=== PATIENT | male | born 1960 | race Caucasian/White ===

== ENCOUNTER 2018-12-07 07:19 | Inpatient (IN) ==
[2018-12-07] MEDS ORDERED: *HR* Propofol 200 MG/20 ML VIAL IVP ONE (07:36)
[2018-12-07] MEDS ORDERED: Dexamethasone 4 MG/ML VIAL ONE (07:37)
[2018-12-07] MEDS ORDERED: *HR* Rocuronium Bromide 50 MG/5 ML VIAL ONE ×2 (07:37→09:17)
[2018-12-07] MEDS ORDERED: *HR* Midazolam HCl 2 MG/2 ML VIAL ONE (07:37)
[2018-12-07] MEDS ORDERED: *HR* FentaNYL (PF) 100 MCG/2 ML VIAL ONE (07:37)
[2018-12-07] MEDS ORDERED: Lidocaine -MPF 2% 2 ML VIAL ONE (07:37)
[2018-12-07] MEDS ORDERED: Ondansetron 4 MG/2 ML VIAL ONE (07:37)
[2018-12-07] MEDS ORDERED: *HR* Succinylcholine 200 MG/10 ML VIAL IVP ONE (07:38)
[2018-12-07] MEDS ORDERED: Lidocaine HCL 4 ML Topical Solution (Laryng-O-Jet Kit Sterile Pak) TP ONE (07:38)
[2018-12-07] MEDS ORDERED: *HR* Remifentanil 2 MG VIAL IVP ONE (07:46)
--- NOTE | 2018-12-07 08:06 | Anesthesia Evaluation PreOp ---
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 (has had frontal lobe CVA, states he's weak on R side.) Other Medical History: Diabetes Type II (poorly cont), GERD Anesthesia History: No Prior Anesthetic Complications, Past Anesthesia Alcohol Use: none Drug use: none Medications and Allergies Allergy/AdvReac Type Severity Reaction Status Date / Time No Known Allergies Allergy Verified 12/07/18 08:10 - Meds/Allergy Pre-op Review Medications Reviewed: Yes Allergies Reviewed: Yes Beta Blockers on Current Med List: No Anesthesia Results - Imaging EKG: report reviewed (sinus rhythm) Anesthesia Exam Weight: 103 kg BMI 32 NPO (# of Hours): over 8 hours - HEENT Pupil (Motor): Pupils equal Mallampati: II Teeth: Missing (upper plate) - Cardiac Rhythm: Regular Murmur: None - Pulmonary Breath Sounds: bilateral Rales (Mild diffuse wheezing, good air exchange. ), bilateral Rhonchi Respiratory Effort: Symmetrical Anesthesia Assess/Plan ASA Score: 3 Level of consciousness: Cooperative Anesthetic Plan: General Monitoring Plan: Standard Monitors Recovery Plan: PACU (Discussed GA, risks. Agreed to proceed.)
--- NOTE | 2018-12-07 08:10 | History & Physical Report ---
Date of Encounter: 12/07/18 Time of Encounter: 08:09 24 Hour HP Update - Instructions Instructions: If the History and Physical is less than 30 days old and was completed prior to A.M. admission and or procedure and has NOT been updated on calendar day of procedure please complete this update prior to performing procedure. - Update Patient reports changes in Medical Condition: No Changes in examination, assessment, or condition: No Changes in Medication: No Preop tests/diagnostics Reviewed: Yes Pre-Op MRSA Screen: Negative Surgery Remains Indicated: Yes Consent for Planned Operative Procedure(s) Verified: Yes - Pre-Operative Checklist Preoperative Checklist Indicated: Yes Prophylactic Antibiotic Ordered: Yes Home Medications Include Beta Jarrod: No Beta Jarrod Taken Today (Day of Surgery): No Beta Jarrod Taken Yesterday (Day Prior to Surgery): No Is VTE Prophylaxis Indicated?: Yes
[2018-12-07] MEDS ORDERED: Albuterol 2.5 MG/3 ML NEBULIZER IH ONE (08:11)
[2018-12-07] MEDS ORDERED: CeFAZolin Syr 2,000MG/20 ML 2,000 MG/20 ML SYRINGE IVPB ONE (08:11)
[2018-12-07] MEDS ORDERED: Acetaminophen IV 1,000 MG/100 ML INFUS..BTL IVPB ONE (08:13)
[2018-12-07] MEDS ORDERED: Ringers Solution, Lactated 1,000 ML IVC SCH (08:15)
[2018-12-07] MEDS ORDERED: EPHEDrine 50 MG/ML VIAL ONE (08:57)
[2018-12-07] MEDS ORDERED: *HR* PHENYLEPHRINE 1,000 MCG/10 ML SYRINGE IVP ONE (09:00)
[2018-12-07] MEDS ORDERED: Ondansetron 4 MG/2 ML VIAL IVP ONE (09:17)
[2018-12-07] MEDS ORDERED: *HR* Midazolam HCl 2 MG/2 ML VIAL IVP PRN (09:17)
[2018-12-07] MEDS ORDERED: *HR* HYDROMORPHONE 2 MG/ML VIAL ONE (10:22)
--- NOTE | 2018-12-07 10:53 | Operative Note ---
Date of procedure: 12/07/18 Pre-op diagnosis: multiple pulm nodules Post-op diagnosis: other (granulomas) Procedure: bronchoscopy with aspiration, robotic left wedge resection x 2 lymph node dissection Anesthesia: GETA Local Anesthetics: 0.5% Sensorcaine HCL SubQ (cc) Surgeon: Harshal Flood Was there an assistant farm operations manager present: No Estimated blood loss (cc): 10 Specimen: wedge resection x 2, nodes 8.9 Condition: stable Disposition: PACU Procedure in Detail: Patient had multiple pulmonary nodules seen on CT scan of the chest. Despite PET scan demonstrating minimal activity, patient wanted mass was diagnosed given his history of tobacco use. Patient was brought to the operating room and placed on the operating table in the supine position. After undergoing general anesthesia with sequential compressive devices on bilateral lower extremities and perioperative antibiotics on board bronchoscopy was performed and thick copious secretions aspirated from the tracheobronchial tree until clear. Patient was placed on the operating room table in the right lateral decubitus position with care to pad all pressure points prepped and draped in the usual sterile fashion. Thoracoscopy ports were placed in the da Damon robot was docked. Wedge resection of the left upper lobe performed 2 for multiple pulmonary nodules. The inferior pulmonary ligament was mobilized. Lymph nodes were removed from stations 8 and 9. Intraoperative frozen section demonstrated organizing granulomas. Paravertebral nerve blocks were performed. A 28-Serbian chest tube placed through the most anterior thoracoscopy incision and secured into place with a 2 Ethibond suture. Remaining ports were removed the da 9Cookies robot was de-docked. Remaining incisions closed with 0 Vicryl and 4-0 Monocryl subcuticular stitches with dressings consisting of Steri-Strips and gauze.
[2018-12-07] MEDS: Morphine Sulfate 2 MG/ML SYRINGE IVP PRN ×2 (11:10→11:25)
--- NOTE | 2018-12-07 12:29 | Anesthesia Evaluation Post Op ---
Date of Encounter: 12/07/18 Time of Encounter: 11:45 - Vital Signs Vital Signs: Selected Entries 12/07/18 12:23 Temperature 97.7 F Respiratory Rate 18 Blood Pressure 147/71 Oxygen Delivery Method Nasal Cannula Laboratory Tests 07/27/16 12/02/18 12/02/18 10:57 10:20 10:20 WBC 12.6 H Hgb 12.8 L Hct 38.0 Plt Count 285 PT 11.1 INR 1.0 APTT 33.8 Sodium 133 L Potassium 4.1 Chloride 102 Carbon Dioxide 24 BUN 17 Creatinine 0.85 - Lungs Lungs: Clear Ascult./Percussion (baseline) - Airway Airway: Non-obstructed - Cardiovascular Regular Rate - Mental Status Mental Status: Alert & Oriented, Answers Appropriately - Nausea Vomiting Nausea Vomiting: Not Present - Hydration Hydration: Tolerates oral liquids - Discharge PostOp Status: Transfer Patient to floor
[2018-12-07] MEDS ORDERED: Ondansetron 4 MG/2 ML VIAL IVP PRN (12:33)
[2018-12-07] MEDS ORDERED: Naloxone 0.4 MG/ML INJ IVP PRN (12:33)
[2018-12-07] MEDS: 0.9 % Sodium Chloride 1,000 ML IVC SCH (14:07)
[2018-12-07] MEDS: Insulin LISPRO 300 UNITS/3 ML VIAL SQ SCH ×2 (14:16→17:16)
[2018-12-07] MEDS: Ketorolac 15 MG/ML VIAL IVP SCH ×2 (14:18→18:44)
[2018-12-07] MEDS: *HR* Heparin 5,000 UNIT/ML VIAL SQ SCH ×2 (14:22→20:52)
[2018-12-07] MEDS: Ipratropium/Albuterol Neb 3 ML IH SCH ×4 (15:50→23:55)
[2018-12-07] MEDS: Gabapentin 300 MG CAPSULE PO SCH ×2 (17:23→20:52)
[2018-12-07] MEDS: *HR* Metformin 500 MG TABLET PO SCH (17:27)
[2018-12-07] MEDS: Isosorbide MONOnitrate (24 HR) 60 MG TAB.ER.24H PO SCH (20:52)
[2018-12-07] MEDS: Famotidine 20 MG TABLET PO SCH (20:52)
[2018-12-07] MEDS: Sennosides/Docusate Sodium TABLET PO SCH (20:52)
[2018-12-08] MEDS: Ketorolac 15 MG/ML VIAL IVP SCH ×4 (00:05→19:14)
[2018-12-08] MEDS: 0.9 % Sodium Chloride 1,000 ML IVC SCH (03:48)
[2018-12-08 04:06] LABS: Hemoglobin 11.7 g/dL (12.9-16.9); Mean Corpuscular HGB Conc 33.4 g/dL (31.6-35.5); Mean Corpuscular Hemoglobin 32.9 pg (28.0-33.3); Mean Corpuscular Volume 98.3 fL (83.0-100.0); Mean Platelet Volume 9.4 fL (9.4-12.4); Platelet Count 234 K/mcL (140-400); Red Blood Count 3.56 M/mcL (4.19-5.50); Red Cell Distribution Width 14.9 % (11.5-14.5); White Blood Count 17.4 K/mcL (4.3-11.1)
[2018-12-08] MEDS: Ipratropium/Albuterol Neb 3 ML IH SCH ×5 (04:14→19:56)
[2018-12-08 04:25] LABS: % Iron Saturation 10 % (20-55); BUN/Creatinine Ratio 23 (6-26); Blood Urea Nitrogen 15 mg/dL (6-20); Calcium 8.3 mg/dL (8.6-10.3); Carbon Dioxide 26 mEq/L (23-29); Chloride 103 mEq/L (98-107); Glucose 199 mg/dL (70-105); Iron 28 mcg/dL (65-175); Magnesium 1.9 mg/dL (1.6-2.6); Osmolality,Calculated 284 (280-300); Potassium 4.4 mEq/L (3.5-5.1); Sodium 134 mEq/L (136-145); Transferrin 201 mg/dL (203-362); eGFR For African Americans > 60 (> 60); eGFR For Non-African Americans > 60 (> 60)
[2018-12-08] MEDS: *HR* Heparin 5,000 UNIT/ML VIAL SQ SCH ×3 (06:21→21:16)
[2018-12-08] MEDS: Tiotropium 18 MCG inhalation IH SCH (07:36)
[2018-12-08] MEDS: *HR* Metformin 500 MG TABLET PO SCH ×2 (08:16→16:00)
[2018-12-08] MEDS: Isosorbide MONOnitrate (24 HR) 60 MG TAB.ER.24H PO SCH ×2 (08:16→21:15)
[2018-12-08] MEDS: FLUoxetine 20 MG CAPSULE PO SCH (08:16)
[2018-12-08] MEDS: Sennosides/Docusate Sodium TABLET PO SCH ×2 (08:16→21:15)
[2018-12-08] MEDS: Gabapentin 300 MG CAPSULE PO SCH ×3 (08:16→21:16)
[2018-12-08] MEDS: Famotidine 20 MG TABLET PO SCH ×2 (08:17→21:15)
[2018-12-08] MEDS: Insulin LISPRO 300 UNITS/3 ML VIAL SQ SCH ×3 (08:19→16:52)
[2018-12-08] MEDS: *HR* HYDROcodone/Acet 5/325 mg TABLET PO PRN ×2 (08:31→14:22)
[2018-12-08] MEDS ORDERED: TIOTROPIUM 18 MCG IH SCH (09:00)
[2018-12-08] MEDS ORDERED: Iron Sucrose Complex 400 MG in 0.9 % Sodium Chloride 250 ML IVPB ONE (14:38)
--- NOTE | 2018-12-08 14:41 | Cardiothoracic Progress Note ---
Date of Encounter: 12/08/18 Time of Encounter: 14:39 - Assessment and plan (1) Granulomatous lung disease Current Visit: Yes Status: Acute The assessment and plan as outlined above was discussed with the patient and/or family members who expressed understanding and agreement. All questions were answered. place chest tube to waterseal replace mg and iron (2) Hypertension Current Visit: No Status: Chronic The assessment and plan as outlined above was discussed with the patient and/or family members who expressed understanding and agreement. All questions were answered. Qualifiers: Hypertension type: essential hypertension Qualified Code(s): I10 - Essential (primary) hypertension (3) Diabetes mellitus, type II Current Visit: No Status: Chronic The assessment and plan as outlined above was discussed with the patient and/or family members who expressed understanding and agreement. All questions were answered. Qualifiers: Diabetes mellitus assisted insulin use: with assisted use Diabetes mellitus complication status: without complication Qualified Code(s): E11.9 - Type 2 diabetes mellitus without complications; Z79.4 - correction (current) use of insulin (4) COPD (chronic obstructive pulmonary disease) Current Visit: No Status: Acute The assessment and plan as outlined above was discussed with the patient and/or family members who expressed understanding and agreement. All questions were answered. Qualifiers: COPD type: emphysema Emphysema type: panlobular Qualified Code(s): J43.1 - Panlobular emphysema Vital Signs, Last 4 Hours Temp Pulse Resp BP Pulse Ox 12/08/18 12:01 100.1 F H 75 17 138/68 94 Oxgyen Flow Rate Oxygen Flow Rate (LPM) 2 Clinical Data, last 8 Hours Output, Chest Tube Drainage 50 Amount [Left Lateral Chest] Output, Chest Tube Drainage 10 Amount [Left Lateral Chest] Output, Urine Amount 550 Weight 12/06/18 12/07/18 12/08/18 23:59 23:59 23:59 Weight 103.873 kg 103.9 kg - Physical Examination General: Conversant, No Apparent Distress HEENT: Atraumatic, Normocephaly Neck: No JVD, Lymphadenopathy Cardiac: Reg Rate and Rhythm, Normal S1 and S2 Incision: No signs of infection Chest tubes: Minimal drainage, Air leak Lungs: Normal Breath Sounds Neuro: Alert and responsive, No focal deficits noted, Cranial nerves intact - Labs 12/08/18 03:49 12/08/18 03:49 Lab Results, Last 24 hours 12/08/18 12/08/18 03:49 03:49 WBC 17.4 H Hgb 11.7 L Hct 35.0 L Plt Count 234 Sodium 134 L Potassium 4.4 Chloride 103 Carbon Dioxide 26 BUN 15 Creatinine 0.64 L Glucose 199 H Calcium 8.3 L Magnesium 1.9 - Imaging Chest Xray: image reviewed Consult Discharge Plan - Plan Referrals: Ally Bermudez CNP [Primary Care Provider] - Harshal Flood MD [Partnered Physician] -
[2018-12-09] MEDS: Ketorolac 15 MG/ML VIAL IVP SCH ×5 (00:14→23:56)
[2018-12-09] MEDS: Ipratropium/Albuterol Neb 3 ML IH SCH ×7 (00:19→23:52)
[2018-12-09] MEDS: *HR* Heparin 5,000 UNIT/ML VIAL SQ SCH ×3 (06:35→20:22)
[2018-12-09] MEDS: Isosorbide MONOnitrate (24 HR) 60 MG TAB.ER.24H PO SCH ×2 (07:36→20:21)
[2018-12-09] MEDS: *HR* Metformin 500 MG TABLET PO SCH ×2 (07:36→16:15)
[2018-12-09] MEDS: *HR* HYDROcodone/Acet 5/325 mg TABLET PO PRN ×2 (07:36→20:21)
[2018-12-09] MEDS: FLUoxetine 20 MG CAPSULE PO SCH (07:36)
[2018-12-09] MEDS: Famotidine 20 MG TABLET PO SCH ×2 (07:36→20:21)
[2018-12-09] MEDS: Sennosides/Docusate Sodium TABLET PO SCH ×2 (07:36→20:21)
[2018-12-09] MEDS: Gabapentin 300 MG CAPSULE PO SCH ×3 (07:36→20:21)
[2018-12-09] MEDS: Insulin LISPRO 300 UNITS/3 ML VIAL SQ SCH ×3 (07:40→16:15)
[2018-12-09] MEDS: Tiotropium 18 MCG inhalation IH SCH (07:50)
[2018-12-10] MEDS: Ipratropium/Albuterol Neb 3 ML IH SCH ×5 (03:46→19:50)
[2018-12-10] MEDS: *HR* Heparin 5,000 UNIT/ML VIAL SQ SCH ×3 (06:09→21:05)
[2018-12-10] MEDS: Ketorolac 15 MG/ML VIAL IVP SCH ×4 (06:09→23:37)
[2018-12-10] MEDS: *HR* HYDROcodone/Acet 5/325 mg TABLET PO PRN ×3 (07:03→23:37)
[2018-12-10] MEDS: Tiotropium 18 MCG inhalation IH SCH (07:37)
[2018-12-10] MEDS: FLUoxetine 20 MG CAPSULE PO SCH (08:20)
[2018-12-10] MEDS: *HR* Metformin 500 MG TABLET PO SCH ×2 (08:20→16:23)
[2018-12-10] MEDS: Isosorbide MONOnitrate (24 HR) 60 MG TAB.ER.24H PO SCH ×2 (08:20→21:04)
[2018-12-10] MEDS: Sennosides/Docusate Sodium TABLET PO SCH ×2 (08:20→21:05)
[2018-12-10] MEDS: Gabapentin 300 MG CAPSULE PO SCH ×3 (08:21→21:05)
[2018-12-10] MEDS: Famotidine 20 MG TABLET PO SCH ×2 (08:21→21:04)
[2018-12-10] MEDS: Insulin LISPRO 300 UNITS/3 ML VIAL SQ SCH ×3 (08:25→16:27)
--- NOTE | 2018-12-10 15:17 | Cardiothoracic Progress Note ---
Date of Encounter: 12/10/18 Time of Encounter: 15:17 - Assessment and plan (1) Granulomatous lung disease Current Visit: Yes Status: Acute The assessment and plan as outlined above was discussed with the patient and/or family members who expressed understanding and agreement. All questions were answered. place chest tube to waterseal replace mg and iron (2) Hypertension Current Visit: No Status: Chronic The assessment and plan as outlined above was discussed with the patient and/or family members who expressed understanding and agreement. All questions were answered. Qualifiers: Hypertension type: essential hypertension Qualified Code(s): I10 - Essential (primary) hypertension (3) Diabetes mellitus, type II Current Visit: No Status: Chronic The assessment and plan as outlined above was discussed with the patient and/or family members who expressed understanding and agreement. All questions were answered. 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 All questions were answered. Qualifiers: COPD type: emphysema Emphysema type: panlobular Qualified Code(s): J43.1 - Panlobular emphysema Vital Signs, Last 4 Hours Temp Pulse Resp BP Pulse Ox 12/10/18 12:00 98.6 F 77 18 109/63 93 12/10/18 11:47 98.6 F 77 18 109/63 93 Oxgyen Flow Rate Oxygen Flow Rate (LPM) 3 Clinical Data, last 8 Hours Output, Chest Tube Drainage 0 Amount [Left Lateral Chest] Output, Chest Tube Drainage 0 Amount [Left Lateral Chest] Output, Urine Amount 0 Output, Urine Amount 0 Weight 12/08/18 12/09/18 12/10/18 23:59 23:59 23:59 Weight 103.9 kg 106.5 kg 104.4 kg - Physical Examination General: Conversant, No Apparent Distress, Well developed, Well nourished HEENT: Atraumatic, Normocephaly Cardiac: Reg Rate and Rhythm, Normal S1 and S2 Incision: No signs of infection, Dry/intact dressing Chest tubes: Minimal drainage, Air leak Lungs: Normal Breath Sounds Neuro: Alert and responsive, No focal deficits noted, Cranial nerves intact, Motor nerves intact - Labs 12/08/18 03:49 12/08/18 03:49 Consult Discharge Plan - Plan Referrals: Ally Bermudez, GT [Primary Care Provider] - Harshal Flood MD [Partnered Physician] -
[2018-12-11] MEDS: Ipratropium/Albuterol Neb 3 ML IH SCH ×7 (00:14→23:41)
[2018-12-11] MEDS: *HR* HYDROcodone/Acet 5/325 mg TABLET PO PRN ×3 (04:36→21:20)
[2018-12-11] MEDS: *HR* Heparin 5,000 UNIT/ML VIAL SQ SCH ×3 (04:37→21:20)
[2018-12-11] MEDS: Ketorolac 15 MG/ML VIAL IVP SCH ×4 (04:37→23:46)
[2018-12-11] MEDS: Tiotropium 18 MCG inhalation IH SCH (07:52)
[2018-12-11] MEDS: Sennosides/Docusate Sodium TABLET PO SCH ×2 (08:18→21:20)
[2018-12-11] MEDS: Gabapentin 300 MG CAPSULE PO SCH ×3 (08:18→21:20)
[2018-12-11] MEDS: Isosorbide MONOnitrate (24 HR) 60 MG TAB.ER.24H PO SCH ×2 (08:18→21:20)
[2018-12-11] MEDS: Famotidine 20 MG TABLET PO SCH ×2 (08:18→21:20)
[2018-12-11] MEDS: Insulin LISPRO 300 UNITS/3 ML VIAL SQ SCH ×3 (08:18→17:29)
[2018-12-11] MEDS: FLUoxetine 20 MG CAPSULE PO SCH (08:18)
[2018-12-11] MEDS: *HR* Metformin 500 MG TABLET PO SCH ×2 (08:19→15:56)
--- NOTE | 2018-12-11 11:02 | Cardiothoracic Progress Note ---
Date of Encounter: 12/11/18 Time of Encounter: 10:56 - Assessment and plan (1) Granulomatous lung disease Current Visit: Yes Status: Acute The patient is recovering well from his robotic left upper lobe wedge resection 2. He has a persistent air leak. This morning's chest x-ray shows a left apical pneumothorax measuring approximately 4 cm. The chest tube will be placed on -20 cm water suction. The chest x-ray will be repeated in the morning. The assessment and plan as outlined above was discussed with the patient and/or family members who expressed understanding and agreement. All questions were answered. - Subjective Procedure(s) Performed: POD#4 S/P Robotic left upper lobe wedge resection 2 Interval history: The patient remained hemodynamically stable overnight. He had a low-grade fever. He has no complaints. Vital Signs, Last 4 Hours Temp Pulse Resp BP Pulse Ox 12/11/18 07:50 24 91 12/11/18 07:13 100.5 F H 97 32 130/67 86 Oxgyen Flow Rate Oxygen Flow Rate (LPM) 2 Clinical Data, last 8 Hours Output, Urine Amount 200 Weight 12/09/18 12/10/18 12/11/18 23:59 23:59 23:59 Weight 106.5 kg 104.4 kg 104.4 kg - Physical Examination General: Conversant, No Apparent Distress Neck: No JVD, Normal carotid pulses Cardiac: Reg Rate and Rhythm, Normal S1 and S2, No Murmur Incision: No signs of infection, Dry/intact dressing Chest tubes: Minimal drainage, Air leak Lungs: Normal Breath Sounds, No Wheeze, Rales, Rhonchi Neuro: Alert and responsive, No focal deficits noted Vascular: Normal capillary refill Extremities: No Clubbing, No Cyanosis, No Edema - Labs 12/08/18 03:49 12/08/18 03:49 - Imaging Chest Xray: image reviewed (Left apical pneumothorax, unchanged.) Consult Discharge Plan - Plan Referrals: Ally Bermudez CNP [Primary Care Provider] - Harshal Flood MD [Partnered Physician] -
[2018-12-11] MEDS: Acetaminophen 325 MG TABLET PO PRN (15:56)
[2018-12-11 19:30] LABS: Bilirubin,Urine Small (Negative); Blood,Urine Negative (Negative); Clarity,Urine Clear (Clear); Color,Urine Orange (Yellow); Glucose,Urine (UA) 250 mg/dL (Normal); Ketones,Urine Trace mg/dL (Negative); Leukocyte Esterase,Urine Small (Negative); Nitrite,Urine Positive (Negative); PH,Urine 5.5 pH Units (5.0-8.0); Protein,Urine 30 mg/dL (Neg-Trace); Specific Gravity,Urine > 1.030 (1.010-1.025); Urobilinogen,Urine Normal (Normal)
[2018-12-11 19:34] LABS: Bacteria,Urine None Seen per hpf (None-Few); Hyaline Casts,Urine Moderate per lpf (None-Few); Squamous Epithelial Cell,Urine Many per lpf (None-Few)
[2018-12-12] MEDS: Acetaminophen 325 MG TABLET PO PRN ×4 (00:10→19:39)
[2018-12-12] MEDS: Ipratropium/Albuterol Neb 3 ML IH SCH ×5 (03:56→20:12)
[2018-12-12] MEDS: Ketorolac 15 MG/ML VIAL IVP SCH (04:39)
[2018-12-12] MEDS: *HR* Heparin 5,000 UNIT/ML VIAL SQ SCH ×3 (04:39→19:49)
[2018-12-12] MEDS: *HR* HYDROcodone/Acet 5/325 mg TABLET PO PRN ×4 (04:39→23:20)
[2018-12-12] MEDS: Tiotropium 18 MCG inhalation IH SCH (07:13)
[2018-12-12] MEDS: Insulin LISPRO 300 UNITS/3 ML VIAL SQ SCH ×3 (08:34→17:17)
[2018-12-12] MEDS: FLUoxetine 20 MG CAPSULE PO SCH (08:35)
[2018-12-12] MEDS: Gabapentin 300 MG CAPSULE PO SCH ×3 (08:35→19:40)
[2018-12-12] MEDS: Isosorbide MONOnitrate (24 HR) 60 MG TAB.ER.24H PO SCH ×2 (08:35→19:40)
[2018-12-12] MEDS: Famotidine 20 MG TABLET PO SCH ×2 (08:35→19:40)
[2018-12-12] MEDS: *HR* Metformin 500 MG TABLET PO SCH ×2 (08:36→17:16)
[2018-12-12 09:49] LABS: Hematocrit 39.2 % (37.5-50.1); Mean Corpuscular HGB Conc 33.2 g/dL (31.6-35.5); Mean Corpuscular Hemoglobin 32.6 pg (28.0-33.3); Mean Corpuscular Volume 98.2 fL (83.0-100.0); Mean Platelet Volume 10.4 fL (9.4-12.4); Platelet Count 210 K/mcL (140-400); Red Blood Count 3.99 M/mcL (4.19-5.50); Red Cell Distribution Width 14.6 % (11.5-14.5); White Blood Count 12.2 K/mcL (4.3-11.1)
[2018-12-12] MEDS: 0.9 % Sodium Chloride 1,000 ML IVC SCH ×2 (09:52→23:14)
[2018-12-12] MEDS: levoFLOXacin 500 MG TABLET PO SCH (09:52)
[2018-12-12 10:07] LABS: BUN/Creatinine Ratio 29 (6-26); Blood Urea Nitrogen 35 mg/dL (6-20); Calcium 8.8 mg/dL (8.6-10.3); Carbon Dioxide 24 mEq/L (23-29); Chloride 96 mEq/L (98-107); Glucose 268 mg/dL (70-105); Osmolality,Calculated 287 (280-300); Potassium 4.7 mEq/L (3.5-5.1); Sodium 130 mEq/L (136-145); eGFR For African Americans > 60 (> 60); eGFR For Non-African Americans > 60 (> 60)
[2018-12-12] MEDS: Sennosides/Docusate Sodium TABLET PO SCH ×2 (12:14→19:40)
--- NOTE | 2018-12-12 12:15 | Cardiothoracic Progress Note ---
Date of Encounter: 12/12/18 Time of Encounter: 12:13 - Assessment and plan (1) Granulomatous lung disease Current Visit: Yes Status: Acute The assessment and plan as outlined above was discussed with the patient and/or family members who expressed understanding and agreement. All questions were answered. place mini express. start ivf do to poor po intake. labs ordered and reviewed. possible uti so will start levaquin (2) Hypertension Current Visit: No Status: Chronic The assessment and plan as outlined above was discussed with the patient and/or family members who expressed understanding and agreement. All questions were answered. Qualifiers: Hypertension type: essential hypertension Qualified Code(s): I10 - Essen tial (primary) hypertension (3) Diabetes mellitus, type II Current Visit: No Status: Chronic The assessment and plan as outlined above was discussed with the patient and/or family members who expressed understanding and agreement. All questions were answered. doing well with increased ssi from wednesday. 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 All questions were answered. Qualifiers: COPD type: emphysema Emphysema type: panlobular Qualified Code(s): J43.1 - Panlobular emphysema Vital Signs, Last 4 Hours Temp Pulse Resp BP Pulse Ox 12/12/18 11:32 101.4 F H 106 26 127/71 94 12/12/18 11:23 24 93 12/12/18 08:35 100.5 F H 114 28 131/67 94 12/12/18 08:20 100.5 F H 114 28 131/67 94 Oxgyen Flow Rate Oxygen Flow Rate (LPM) 3 Clinical Data, last 8 Hours Output, Chest Tube Drainage 0 Amount [Left Lateral Chest] Output, Chest Tube Drainage 0 Amount [Left Lateral Chest] Output, Chest Tube Drainage 70 Amount [Left Lateral Chest] Output, Urine Amount 0 Weight 12/10/18 12/11/18 12/12/18 23:59 23:59 23:59 Weight 104.4 kg 104.4 kg 102.9 kg - Physical Examination General: No Apparent Distress HEENT: Atraumatic, Normocephaly Cardiac: Reg Rate and Rhythm Incision: No signs of infection, Dry/intact dressing Chest tubes: Minimal drainage, Air leak Lungs: Normal Breath Sounds Neuro: Alert and responsive - Labs 12/12/18 09:22 12/12/18 09:22 Lab Results, Last 24 hours 12/12/18 12/12/18 09:22 09:22 WBC 12.2 H Hgb 13.0 Hct 39.2 Plt Count 210 Sodium 130 L Potassium 4.7 Chloride 96 L Carbon Dioxide 24 BUN 35 H Creatinine 1.21 Glucose 268 H Calcium 8.8 - Imaging Chest Xray: image reviewed Consult Discharge Plan - Plan Additional Instructions: Please go to Out Patient testing on 2018 around 0730AM to get an x-ray done before you go see Dr. Flood. The office is sending the order over to out patient testing at the [facility]. Referrals: Ally Bermudez CNP [Primary Care Provider] - 12/19/18 3:00 pm Harshal Flood MD [Partnered Physician] - 12/27/18 8:30 am
[2018-12-13] MEDS: Ipratropium/Albuterol Neb 3 ML IH SCH ×7 (00:15→23:02)
[2018-12-13 01:13] LABS: Hematocrit 36.1 % (37.5-50.1); Mean Corpuscular HGB Conc 33.2 g/dL (31.6-35.5); Mean Corpuscular Hemoglobin 32.9 pg (28.0-33.3); Mean Corpuscular Volume 98.9 fL (83.0-100.0); Mean Platelet Volume 11.1 fL (9.4-12.4); Nucleated Red Blood Cells 0.2 /100 WBC (0); Platelet Count 183 K/mcL (140-400); Red Blood Count 3.65 M/mcL (4.19-5.50); Red Cell Distribution Width 14.9 % (11.5-14.5); White Blood Count 11.6 K/mcL (4.3-11.1)
[2018-12-13] MEDS: Acetaminophen 325 MG TABLET PO PRN (01:30)
[2018-12-13] MEDS: 0.9 % Sodium Chloride 1,000 ML IVC SCH ×4 (01:39→19:12)
[2018-12-13 01:50] LABS: Lymphocytes # 0.2 K/mcL (0.6-4.6); Monocytes # 0.2 K/mcL (0.0-1.3); Neutrophils # 10.9 K/mcL (1.6-8.9)
[2018-12-13 01:51] LABS: Platelet Estimate Normal (Normal); Polychromasia 1+ (Not Present)
[2018-12-13] MEDS: *HR* Heparin 5,000 UNIT/ML VIAL SQ SCH ×3 (05:10→20:17)
[2018-12-13] MEDS: Tiotropium 18 MCG inhalation IH SCH (07:59)
[2018-12-13] MEDS: FLUoxetine 20 MG CAPSULE PO SCH (08:09)
[2018-12-13] MEDS: levoFLOXacin 500 MG TABLET PO SCH (08:10)
[2018-12-13] MEDS: Gabapentin 300 MG CAPSULE PO SCH (08:10)
[2018-12-13] MEDS: Famotidine 20 MG TABLET PO SCH (08:10)
[2018-12-13] MEDS: Isosorbide MONOnitrate (24 HR) 60 MG TAB.ER.24H PO SCH ×2 (08:17→20:16)
[2018-12-13] MEDS: *HR* Metformin 500 MG TABLET PO SCH (08:17)
[2018-12-13] MEDS: Insulin LISPRO 300 UNITS/3 ML VIAL SQ SCH ×3 (08:17→17:08)
[2018-12-13] MEDS: Sennosides/Docusate Sodium TABLET PO SCH ×2 (08:17→20:16)
[2018-12-13] MEDS ORDERED: 0.9 % Sodium Chloride 1,000 ML IV ONE (08:32)
--- NOTE | 2018-12-13 08:35 | Cardiothoracic Progress Note ---
Date of Encounter: 12/13/18 Time of Encounter: 08:33 - Assessment and plan (1) Granulomatous lung disease Current Visit: Yes Status: Acute The assessment and plan as outlined above was discussed with the patient and/or family members who expressed understanding and agreement. All questions were answered. rounded with nurse give fluid bolus check bmp continue ivf at 125, levaquin. wbc improved. (2) Hypertension Current Visit: No Status: Chronic The assessment and plan as outlined above was discussed with the patient and/or family members who expressed understanding and agreement. All questions were answered. Qualifiers: Hypertension type: essential hypertension Qualified Code(s): I10 - Essential (primary) hypertension (3) Diabetes mellitus, type II Current Visit: No Status: Chronic The assessment and plan as outlined above was discussed with the patient and/or family members who expressed understanding and agreement. All questions were ans wered. doing well with increased ssi from wednesday. 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 All questions were answered. Qualifiers: COPD type: emphysema Emphysema type: panlobular Qualified Code(s): J43.1 - Panlobular emphysema - Subjective Interval history: patient says he feels like he is in a daze Vital Signs, Last 4 Hours Temp Pulse Resp BP Pulse Ox 12/13/18 07:58 22 92 12/13/18 07:13 98.3 F 88 20 104/60 92 12/13/18 05:15 26 88 Oxgyen Flow Rate Oxygen Flow Rate (LPM) 4 Clinical Data, last 8 Hours Output, Chest Tube Drainage 90 Amount [Left Lateral Chest] Weight 12/11/18 12/12/18 12/13/18 23:59 23:59 23:59 Weight 104.4 kg 102.9 kg - Physical Examination General: Conversant, Well developed, Well nourished, Other (mucus membranes dry ) HEENT: Atraumatic, Normocephaly Cardiac: Reg Rate and Rhythm, Normal S1 and S2 Incision: No signs of infection, Dry/intact dressing Chest tubes: Minimal drainage Lungs: Normal Breath Sounds Neuro: Alert and responsive, No focal deficits noted, Cranial nerves intact, Motor nerves intact, Sensory nerves intact Abdomen: Soft, Non-tender - Labs 12/13/18 00:37 12/12/18 09:22 Lab Results, Last 24 hours 12/12/18 12/12/18 12/13/18 09:22 09:22 00:37 WBC 12.2 H 11.6 H Hgb 13.0 12.0 L Hct 39.2 36.1 L Plt Count 210 183 Sodium 130 L Potassium 4.7 Chloride 96 L Carbon Dioxide 24 BUN 35 H Creatinine 1.21 Glucose 268 H Calcium 8.8 Consult Discharge Plan - Plan Additional Instructions: Please go to Out Patient testing on 2018 around 0730AM to get an x-ray done before you go see Dr. Flood. The office is sending the order over to out patient testing at the [facility]. Referrals: Ally Bermudez CNP [Primary Care Provider] - 12/19/18 3:00 pm Harshal Flood MD [Partnered Physician] - 12/27/18 8:30 am
[2018-12-13 09:51] LABS: Calcium 7.9 mg/dL (8.6-10.3); Potassium 5.2 mEq/L (3.5-5.1)
[2018-12-13] MEDS ORDERED: 0.9 % Sodium Chloride 1,000 ML IVC ONE (10:46)
[2018-12-13] MEDS ORDERED: 0.9 % Sodium Chloride 500 ML IVC ONE (16:28)
[2018-12-14] MEDS: Ipratropium/Albuterol Neb 3 ML IH SCH ×5 (03:45→20:48)
[2018-12-14 04:51] LABS: Hematocrit 33.8 % (37.5-50.1); Mean Corpuscular HGB Conc 32.5 g/dL (31.6-35.5); Mean Corpuscular Hemoglobin 32.1 pg (28.0-33.3); Mean Corpuscular Volume 98.5 fL (83.0-100.0); Mean Platelet Volume 11.5 fL (9.4-12.4); Platelet Count 167 K/mcL (140-400); Red Blood Count 3.43 M/mcL (4.19-5.50); Red Cell Distribution Width 15.6 % (11.5-14.5); White Blood Count 10.5 K/mcL (4.3-11.1)
[2018-12-14 05:04] LABS: BUN/Creatinine Ratio 32 (6-26); Blood Urea Nitrogen 36 mg/dL (6-20); Calcium 7.7 mg/dL (8.6-10.3); Carbon Dioxide 23 mEq/L (23-29); Chloride 104 mEq/L (98-107); Glucose 179 mg/dL (70-105); Osmolality,Calculated 293 (280-300); Sodium 135 mEq/L (136-145); eGFR For African Americans > 60 (> 60); eGFR For Non-African Americans > 60 (> 60)
[2018-12-14] MEDS: *HR* Heparin 5,000 UNIT/ML VIAL SQ SCH ×3 (05:36→22:11)
[2018-12-14] MEDS: Tiotropium 18 MCG inhalation IH SCH (07:25)
[2018-12-14] MEDS: Isosorbide MONOnitrate (24 HR) 60 MG TAB.ER.24H PO SCH ×2 (08:28→21:08)
[2018-12-14] MEDS: Sennosides/Docusate Sodium TABLET PO SCH ×2 (08:29→21:08)
[2018-12-14] MEDS: Insulin LISPRO 300 UNITS/3 ML VIAL SQ SCH ×3 (08:29→16:51)
[2018-12-14] MEDS: FLUoxetine 20 MG CAPSULE PO SCH (08:29)
[2018-12-14] MEDS ORDERED: levoFLOXacin 250 MG TABLET PO ONE (08:38)
[2018-12-14] MEDS ORDERED: Famotidine 20 MG TABLET PO SCH (09:00)
[2018-12-14] MEDS ORDERED: levoFLOXacin 250 MG TABLET PO SCH (09:00)
[2018-12-14] MEDS: 0.9 % Sodium Chloride 1,000 ML IVC SCH ×2 (09:49→16:52)
--- NOTE | 2018-12-14 09:56 | Cardiothoracic Progress Note ---
Date of Encounter: 12/14/18 Time of Encounter: 09:54 - Assessment and plan (1) Granulomatous lung disease Current Visit: Yes Status: Acute The assessment and plan as outlined above was discussed with the patient and/or family members who expressed understanding and agreement. All questions were answered. rounded with nurse continue ivf. labs and xray in the am. (2) Hypertension Current Visit: No Status: Chronic The assessment and plan as outlined above was discussed with the patient and/or family members who expressed understanding and agreement. All questions were answered. Qualifiers: Hypertension type: essential hypertension Qualified Code(s): I10 - Essential (primary) hypertension (3) Diabetes mellitus, type II Current Visit: No Status: Chronic The assessment and plan as outlined above was discussed with the patient and/or family members who expressed understanding and agreement. All questions were answered. doing well with increased ssi from wednesday. 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 All questions were answered. no changes in chest tube management Qualifiers: COPD type: emphysema Emphysema type: panlobular Qualified Code(s): J43.1 - Panlobular emphysema (5) Acute renal insufficiency Current Visit: Yes Status: Acute The assessment and plan as outlined above was discussed with the patient and/or family members who expressed understanding and agreement. All questions were answered. labs improved today continue fluids and bmp in the am. - Subjective Interval history: patient says he feels better does not want his exwife to transfer him to another hospital Vital Signs, Last 4 Hours Temp Pulse Resp BP Pulse Ox 12/14/18 07:09 98.4 F 83 19 128/63 95 Oxgyen Flow Rate Oxygen Flow Rate (LPM) 2 Weight 12/12/18 12/13/18 12/14/18 23:59 23:59 23:59 Weight 102.9 kg 102.8 kg - Physical Examination General: Conversant, No Apparent Distress, Other (mucus membranes more moist today compared to yesterday ) HEENT: Atraumatic, Normocephaly Incision: No signs of infection, Dry/intact dressing Chest tubes: Minimal drainage Lungs: Other (cta but decreased effort ) Neuro: Alert and responsive, Cranial nerves intact Vascular: Normal capillary refill Abdomen: Soft, Non-tender - Labs 12/14/18 03:45 12/14/18 03:45 Lab Results, Last 24 hours 12/14/18 12/14/18 03:45 03:45 WBC 10.5 Hgb 11.0 L Hct 33.8 L Plt Count 167 Sodium 135 L Potassium 5.0 Chloride 104 Carbon Dioxide 23 BUN 36 H Creatinine 1.14 Glucose 179 H Calcium 7.7 L - Imaging Chest Xray: image reviewed Consult Discharge Plan - Plan Additional Instructions: Please go to Out Patient testing on 2018 around 0730AM to get an x-ray done before you go see Dr. Flood. The office is sending the order over to out patient testing at the [facility]. Referrals: Ally Bermudez CNP [Primary Care Provider] - 12/19/18 3:00 pm Harshal Flood MD [Partnered Physician] - 12/27/18 8:30 am
[2018-12-14] MEDS: *HR* Metformin 500 MG TABLET PO SCH ×2 (16:45→16:59)
[2018-12-14] MEDS: Famotidine 20 MG TABLET PO SCH (16:50)
[2018-12-14] MEDS ORDERED: Furosemide 40 MG/4 ML VIAL IVP ONE (20:52)
[2018-12-15] MEDS: Ipratropium/Albuterol Neb 3 ML IH SCH ×7 (00:54→23:57)
[2018-12-15 01:38] LABS: Hematocrit 36.8 % (37.5-50.1); Hemoglobin 12.5 g/dL (12.9-16.9); Mean Corpuscular Hemoglobin 32.1 pg (28.0-33.3); Mean Corpuscular Volume 94.6 fL (83.0-100.0); Mean Platelet Volume 12.3 fL (9.4-12.4); Platelet Count 141 K/mcL (140-400); Red Blood Count 3.89 M/mcL (4.19-5.50); White Blood Count 12.3 K/mcL (4.3-11.1)
[2018-12-15 02:44] LABS: BUN/Creatinine Ratio 34 (6-26); Blood Urea Nitrogen 26 mg/dL (6-20); Calcium 8.6 mg/dL (8.6-10.3); Carbon Dioxide 22 mEq/L (23-29); Chloride 99 mEq/L (98-107); Glucose 202 mg/dL (70-105); Osmolality,Calculated 289 (280-300); Sodium 134 mEq/L (136-145); eGFR For African Americans > 60 (> 60); eGFR For Non-African Americans > 60 (> 60)
[2018-12-15] MEDS: 0.9 % Sodium Chloride 1,000 ML IVC SCH (03:33)
[2018-12-15] MEDS: *HR* Heparin 5,000 UNIT/ML VIAL SQ SCH ×3 (05:19→21:24)
[2018-12-15] MEDS: Tiotropium 18 MCG inhalation IH SCH (08:03)
[2018-12-15] MEDS: FLUoxetine 20 MG CAPSULE PO SCH (08:34)
[2018-12-15] MEDS: Famotidine 20 MG TABLET PO SCH ×2 (08:34→16:29)
[2018-12-15] MEDS: levoFLOXacin 500 MG TABLET PO SCH (08:34)
[2018-12-15] MEDS: Isosorbide MONOnitrate (24 HR) 60 MG TAB.ER.24H PO SCH ×2 (08:34→21:24)
[2018-12-15] MEDS: Insulin LISPRO 300 UNITS/3 ML VIAL SQ SCH ×3 (08:46→17:56)
[2018-12-15] MEDS ORDERED: Furosemide 20 MG/2 ML VIAL IVP ONE (09:42)
[2018-12-15] MEDS: Sennosides/Docusate Sodium TABLET PO SCH ×2 (09:43→21:24)
[2018-12-15] MEDS: *HR* Metformin 500 MG TABLET PO SCH ×2 (10:06→16:29)
--- NOTE | 2018-12-15 17:11 | Cardiothoracic Progress Note ---
Date of Encounter: 12/15/18 Time of Encounter: 17:09 - Assessment and plan (1) Granulomatous lung disease Current Visit: Yes Status: Acute The assessment and plan as outlined above was discussed with the patient and/or family members who expressed understanding and agreement. All questions were answered. rounded with nurse continue ivf. labs and xray in the am. (2) Hypertension Current Visit: No Status: Chronic The assessment and plan as outlined above was discussed with the patient and/or family members who expressed understanding and agreement. All questions were answered. Qualifiers: Hypertension type: essential hypertension Qualified Code(s): I10 - Essential (primary) hypertension (3) Diabetes mellitus, type II Current Visit: No Status: Chronic The assessment and plan as outlined above was discussed with the patient and/or family members who expressed understanding and agreement. All questions were answered. doing well with increased ssi will resume metformin Qualifiers: Diabetes mellitus chcf insulin use: with chcf use Diabetes mellitus complication status: without complication Qualified Code(s): E11.9 - Type 2 diabetes mellitus without complications; Z79.4 - detention (current) use of insulin (4) COPD (chronic obstructive pulmonary disease) Current Visit: No Status: Acute The assessment and plan as outlined above was discussed with the patient and/or family members who expressed understanding and agreement. All questions were answered. no changes in chest tube management Qualifiers: COPD type: emphysema Emphysema type: panlobular Qualified Code(s): J43.1 - Panlobular emphysema (5) Acute renal insufficiency Current Visit: Yes Status: Acute The assessment and plan as outlined above was discussed with the patient and/or family members who expressed understanding and agreement. All questions were answered. labs improved today bmp in the am. resolved acute insufficiency due to poor po intake - Subjective Interval history: patient says he feels better does not want his exwife to transfer him to another hospital Vital Signs, Last 4 Hours Temp Pulse Resp BP Pulse Ox 12/15/18 16:58 28 95 12/15/18 16:48 97.9 F 79 28 127/73 95 Oxgyen Flow Rate Oxygen Flow Rate (LPM) 4 Weight 12/13/18 12/14/18 12/15/18 23:59 23:59 23:59 Weight 102.8 kg - Physical Examination General: Conversant, Well developed, Other (a little anxious) Cardiac: Reg Rate and Rhythm Incision: No signs of infection Chest tubes: Minimal drainage Lungs: Normal Breath Sounds Neuro: Alert and responsive, Cranial nerves intact, Sensory nerves intact, Other (a little anxious and confused but with a little prompting does well.) Vascular: Normal capillary refill - Labs 12/15/18 00:58 12/15/18 02:00 Lab Results, Last 24 hours 12/15/18 12/15/18 00:58 02:00 WBC 12.3 H Hgb 12.5 L D Hct 36.8 L Plt Count 141 Sodium 134 L Potassium 4.0 Chloride 99 Carbon Dioxide 22 L BUN 26 H Creatinine 0.77 Glucose 202 H Calcium 8.6 - Imaging Chest Xray: image reviewed Consult Discharge Plan - Plan Additional Instructions: Please go to Out Patient testing on 2018 around 0730AM to get an x-ray done before you go see Dr. Flood. The office is sending the order over to out patient testing at the [facility]. Referrals: Ally Bermudez CNP [Primary Care Provider] - 12/19/18 3:00 pm Harshal Flood MD [Partnered Physician] - 12/27/18 8:30 am
[2018-12-16] MEDS: Ipratropium/Albuterol Neb 3 ML IH SCH ×5 (04:06→19:55)
[2018-12-16] MEDS: *HR* Heparin 5,000 UNIT/ML VIAL SQ SCH ×3 (05:57→22:09)
[2018-12-16] MEDS: Tiotropium 18 MCG inhalation IH SCH (07:48)
[2018-12-16] MEDS: Sennosides/Docusate Sodium TABLET PO SCH ×2 (08:48→21:59)
[2018-12-16] MEDS: Acetaminophen 325 MG TABLET PO PRN (08:48)
[2018-12-16] MEDS: Famotidine 20 MG TABLET PO SCH ×3 (08:48→16:41)
[2018-12-16] MEDS: Isosorbide MONOnitrate (24 HR) 60 MG TAB.ER.24H PO SCH ×3 (08:48→22:11)
[2018-12-16] MEDS: *HR* Metformin 500 MG TABLET PO SCH ×2 (08:49→16:41)
[2018-12-16] MEDS: Insulin LISPRO 300 UNITS/3 ML VIAL SQ SCH ×3 (08:50→17:49)
[2018-12-16] MEDS: FLUoxetine 20 MG CAPSULE PO SCH ×2 (08:50→09:05)
[2018-12-16] MEDS: levoFLOXacin 500 MG TABLET PO SCH ×2 (08:50→09:03)
[2018-12-16] MEDS: 0.9 % Sodium Chloride 1,000 ML IVC SCH ×2 (09:51→23:46)
[2018-12-16 10:23] LABS: BUN/Creatinine Ratio 45 (6-26); Blood Urea Nitrogen 34 mg/dL (6-20); Calcium 8.7 mg/dL (8.6-10.3); Carbon Dioxide 24 mEq/L (23-29); Chloride 98 mEq/L (98-107); Glucose 260 mg/dL (70-105); Osmolality,Calculated 299 (280-300); Sodium 136 mEq/L (136-145); eGFR For African Americans > 60 (> 60); eGFR For Non-African Americans > 60 (> 60)
[2018-12-16 11:13] LABS: Hematocrit 38.8 % (37.5-50.1); Hemoglobin 13.1 g/dL (12.9-16.9); Mean Corpuscular HGB Conc 33.8 g/dL (31.6-35.5); Mean Corpuscular Hemoglobin 31.7 pg (28.0-33.3); Mean Corpuscular Volume 93.9 fL (83.0-100.0); Mean Platelet Volume 12.4 fL (9.4-12.4); Platelet Count 175 K/mcL (140-400); Red Blood Count 4.13 M/mcL (4.19-5.50); Red Cell Distribution Width 14.9 % (11.5-14.5); White Blood Count 18.2 K/mcL (4.3-11.1)
--- NOTE | 2018-12-16 13:39 | Cardiothoracic Progress Note ---
Date of Encounter: 12/16/18 Time of Encounter: 13:37 - Assessment and plan (1) Granulomatous lung disease Current Visit: Yes Status: Acute The assessment and plan as outlined above was discussed with the patient and/or family members who expressed understanding and agreement. All questions were answered. rounded with nurse continue ivf. labs and xray in the am. family meeting. will obtain ct of the head and neurology consult for changes in mental status add vanco to antibx for leukocytosis which maybe related to surgery (2) Hypertension Current Visit: No Status: Chronic The assessment and plan as outlined above was discussed with the patient and/or family members who expressed understanding and agreement. All questions were answered. Qualifiers: Hypertension type: essential hypertension Qualified Code(s): I10 - Essential (primary) hypertension (3) Diabetes mellitus, type II Current Visit: No Status: Chronic The assessment and plan as outlined above was discussed with the patient and/or family members who expressed understanding and agreement. All questions were answered. 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 All questions were answered. no changes in chest tube management Qualifiers: COPD type: emphysema Emphysema type: panlobular Qualified Code(s): J43.1 - Panlobular emphysema (5) Acute renal insufficiency Current Visit: Yes Status: Acute The assessment and plan as outlined above was discussed with the patient and/or family members who expressed understanding and agreement. All questions were answered. labs improved today bmp in the am. resolved acute insufficiency due to poor po intake - Subjective Interval history: p Vital Signs, Last 4 Hours Temp Pulse Resp BP Pulse Ox 12/16/18 11:22 88 12/16/18 11:07 98.1 F 84 18 128/74 91 Oxgyen Flow Rate Oxygen Flow Rate (LPM) 3.5 Weight 12/14/18 12/15/18 12/16/18 23:59 23:59 23:59 Weight 102.8 kg 95.9 kg - Physical Examination General: Conversant, No Apparent Distress HEENT: Atraumatic, Normocephaly Cardiac: Reg Rate and Rhythm, Normal S1 and S2 Incision: No signs of infection Chest tubes: Minimal drainage Lungs: Normal Breath Sounds Neuro: Other (confused to p,p,t sometimes and other times answers questions appropriately ) Vascular: Normal capillary refill - Labs 12/16/18 09:41 12/16/18 09:41 Lab Results, Last 24 hours 12/16/18 12/16/18 09:41 09:41 WBC 18.2 H Hgb 13.1 Hct 38.8 Plt Count 175 Sodium 136 Potassium 4.0 Chloride 98 Carbon Dioxide 24 BUN 34 H Creatinine 0.76 Glucose 260 H Calcium 8.7 Consult Discharge Plan - Plan Additional Instructions: Please go to Out Patient testing on 2018 around 0730AM to get an x-ray done before you go see Dr. Flood. The office is sending the order over to out patient testing at the [facility]. Referrals: Ally Bermudez CNP [Primary Care Provider] - 12/19/18 3:00 pm Harshal Flood MD [Partnered Physician] - 12/27/18 8:30 am
--- NOTE | 2018-12-16 14:32 | Neurology - Consult Note ---
Date of Encounter: 12/16/18 Time of Encounter: 02:00 Assessment and Plan (1) Altered mental status Current Visit: Yes Status: Acute Waxing and waning mental status. No focal neurological deficits. Possible meningeal irritation difficult to assess due to patients complaints of generalized pain to physical exam. Recommend LP to rule out meningitis. Consu lted Interventional Radiology who stated they will be performing LP tomorrow. Further recommendations per Dr. Jacob, attending neurologist. Qualifiers: Altered mental status type: delirium Qualified Code(s): R41.0 - Disorientation, unspecified History of Present Illness Chief complaint: "Tired" HPI: Mr. Boggs is a 58 year old male with past medical history significant for HTN, Diabetes Mellitus Type 2, COPD, Asthma, GERD and CVA affecting frontal lobe who was admitted for pulmonary wedge resection on 12/07/18. Staff reports he has been developing worsening confusion and altered mental status over the past 2 days. Staff reports his altered mental status waxes and wanes and that he may be disoriented one minutes and the next be more fully oriented. Staff further reports patient has been hallucinating with visual hallucinations of a dog in his room. HPI was limited due to patients altered mental status at time of interview. Patient was somnolent and difficult to rouse. He was not oriented to place, time or circumstance. When asked where he was he reported "my brothers house." He failed to follow simple commands as he would fall back asleep shortly after being roused despite repeated attempts at sustaining his attention. When asked how he was feeling he stated "I'm feeling good, just tired." Past Med Surg Social Fam HX - Past Medical History Medical history: asthma, COPD, coronary artery disease, CVA, diabetes, hyperlipidemia, hypertension, myocardial infarction, peripheral artery disease, other Additional medical history: DDD, RSD, OA, actinic keratosis, Gout, neuropathy Psychiatric history: depression - Past Surgical History Surgical History: angioplasty/stent, other Additional surgical history: Heart stent x 3, right knee scope, pain pump implanted/removed, right knee scope, left knee surgery - Social History Smoking Status: Current every day smoker Packs per day: 1 Smokeless Tobacco Status: No Alcohol use: none Drug use: none - Family History Mother Living Status: Hx Family Cardiac Disorders: Yes (htn, pad, high chol) Hx Family Respiratory Disorders: No Hx Family Cancer: No Hx Family GI Disorders: No Hx Family Endocrine Disorder: No Hx Family Neuromuscular Disorders: No Hx Family Neurologic Disorders: Yes (alzheimers) Hx Family HEENT Disorders: No Hx Family Autoimmune Disorders: No Father Living Status: Hx Family Cardiac Disorders: Yes (stroke, [place]) Hx Family Respiratory Disorders: Yes (COPD) Hx Family Cancer: No Hx Family GI Disorders: No Hx Family Endocrine Disorder: Yes (DM) Hx Family Neuromuscular Disorders: No Hx Family Neurologic Disorders: No Hx Family HEENT Disorders: No Hx Family Autoimmune Disorders: No Medications and Allergies Albuterol Neb [Proventil Neb] 2.5 mg IH Q8H PRN 12/07/18 [History] Albuterol Sulfate [Proair Hfa] 2 puff IH Q6H PRN 12/07/18 [History] Atenolol 50 mg PO BID 12/07/18 [History] Atorvastatin Calcium [Lipitor] 80 mg PO HS 12/07/18 [History] Budesonide/Formoterol 160/4.5 [Symbicort 160/4.5] 2 puff IH BIDR 12/07/18 [History] FLUoxetine HCl [Fluoxetine HCl] 80 mg PO DAILY 12/07/18 [History] Insulin ASPART [Novolog Flexpen] 0 unit SQ TIDWM 12/07/18 [History] Isosorbide MONOnitrate [Isosorbide Mononitrate ER] 60 mg PO BID 12/07/18 [History] Lisinopril [Zestril] 40 mg PO BID 12/07/18 [History] Metformin HCl [Metformin HCl ER] 1,000 mg PO BID 12/07/18 [History] OxyCODONE/APAP 5/325 [Percocet 5/325 MG] 1 tab PO Q4-6H PRN 12/07/18 [History] Tiotropium [Spiriva] 18 mcg IH DAILY 12/07/18 [History] Allergy/AdvReac Type Severity Reaction Status Date / Time No Known Allergies Allergy Verified 12/07/18 08:10 ROS unobtainable: due to mental status All Systems: The remainder of the systems were reviewed and are negative Physical Examination - Vital Signs Vital Signs: Initial Vital Signs Temp Pulse Resp BP Pulse Ox 98.2 F 65 18 116/69 96 12/07/18 08:11 12/07/18 08:11 12/07/18 08:11 12/07/18 08:11 12/07/18 08:11 - Exam Exam: GENERAL: Appears flushed, HEENT: Normal LUNGS: Shallow breaths, HEART: RRR, S1 S2 Audible, no murmur EXTREMITIES: No Pedal edema. DETAILED NEUROLOGICAL EXAMINATION: MENTAL STATUS: Not oriented to person, place, date or situation. Memory: unable to assess due to patients altered mental status Attention span is markedly diminished secondary to extreme somnolence Cranial Nerve Examination: CN - II: Visual Acuity, Field of Vision unable to assess due to patients altered mental status Pupils- size shape reaction to light and accommodation: All normal. CN III, IV, : External ocular movements were not assessed due to patients altered mental status with inability to follow simple commands, Pupils were reactive, Nodrooping of the eyelids CN V: Sensation over the face to light touch and pinprick were difficult to assess due to patients altered mental status. Patient did respond to touch of face with eye opening but would quickly fall back asleep. Corneal reflexes not tested, jaw jerk normal. CN VII: No facial asymmetry, no flattening of nasolabial folds, no difficulty in closing the eyes, no loss of forehead wrinkles, no difficulty in eye-closure, frowning raising eyebrows. CNVIII: No significant hearing loss. CN IX, X: Uvula centralized not deviated, Gag reflex: Not tested CN X1: Sternocleidomastoid, trapezius, normal or evidence of any weakness. CN X11: No Dysarthria, no wasting or fibrilation of tongue muscles, no deviation, tongue muscle strength normal. Motor examination: Moved all four extremities spontaneously Unable to formally test due to patients altered mental status, somnolence, and inability to follow commands Coordination: Unable to assess due to patients altered mental status Sensory system: Withdrew from painful stimuli Limited sensory exam due to patients altered mental status Deep tendon reflexes. Symmetrical bilateral, No evidence of Babinski. No sign of meningeal irritation Gait Examination: Deferred Results - Laboratory Findings CBC and BMP: 12/16/18 09:41 12/16/18 09:41 Abnormal lab findings: Abnormal lab results WBC 18.2 K/mcL (4.3-11.1) H 12/16/18 09:41 RBC 4.13 M/mcL (4.19-5.50) L 12/16/18 09:41 Hgb 12.5 g/dL (12.9-16.9) L D 12/15/18 00:58 Hct 36.8 % (37.5-50.1) L 12/15/18 00:58 RDW 14.9 % (11.5-14.5) H 12/16/18 09:41 Band Neutrophils % 16.0 % (0-4) H 12/13/18 00:37 Myelocytes % 2.0 % (0) H 12/13/18 00:37 Neutrophils # 10.9 K/mcL (1.6-8.9) H 12/13/18 00:37 Lymphocytes # 0.2 K/mcL (0.6-4.6) L 12/13/18 00:37 Nucleated RBCs/100 WBC 0.2 /100 WBC (0) H 12/13/18 00:37 Polychromasia 1+ (Not Present) A 12/13/18 00:37 Sodium 134 mEq/L (136-145) L 12/15/18 02:00 Potassium 5.2 mEq/L (3.5-5.1) H 12/13/18 09:17 Chloride 96 mEq/L (98-107) L 12/12/18 09:22 Carbon Dioxide 22 mEq/L (23-29) L 12/15/18 02:00 BUN 34 mg/dL (6-20) H 12/16/18 09:41 Creatinine 3.07 mg/dL (0.70-1.30) H 12/13/18 09:17 Est GFR ( Amer) 26 (> 60) L 12/13/18 09:17 Est GFR (Non-Af Amer) 21 (> 60) L 12/13/18 09:17 BUN/Creatinine Ratio 45 (6-26) H 12/16/18 09:41 Glucose 260 mg/dL (70-105) H 12/16/18 09:41 POC Glucose 242 mg/dL (70-99) H 12/16/18 11:11 Calculated Osmolality 305 (280-300) H 12/13/18 09:17 Calcium 7.7 mg/dL (8.6-10.3) L 12/14/18 03:45 Iron 28 mcg/dL (65-175) L 12/08/18 03:49 % Saturation 10 % (20-55) L 12/08/18 03:49 Transferrin 201 mg/dL (203-362) L 12/08/18 03:49 Urine Color [place] (Yellow) A 12/11/18 18:14 Ur Specific [place] > 1.030 (1.010-1.025) H 12/11/18 18:14 Urine Protein 30 mg/dL (Neg-Trace) H 12/11/18 18:14 Urine Glucose (UA) 250 mg/dL (Normal) H 12/11/18 18:14 Urine Ketones Trace mg/dL (Negative) H 12/11/18 18:14 Urine Nitrite Positive (Negative) A 12/11/18 18:14 Urine Bilirubin Small (Negative) H 12/11/18 18:14 Ur Leukocyte Esterase Small (Negative) H 12/11/18 18:14 Urine Microscopic RBC 5-15 per hpf (0-3) H 12/11/18 18:14 Urine Microscopic WBC 5-15 per hpf (0-3) H 12/11/18 18:14 Ur Squamous Epith Cells Many per lpf (None-Few) H 12/11/18 18:14 Hyaline Casts Moderate per lpf (None-Few) H 12/11/18 18:14 Ur Culture Indicated? YES (NO) A 12/11/18 18:14 Consult Discharge Plan - Plan Additional Instructions: Please go to Out Patient testing on 2018 around 0730AM to get an x-ray done before you go see Dr. Flood. The office is sending the order over to out patient testing at the [facility]. Referrals: Ally Bermudez CNP [Primary Care Provider] - 12/19/18 3:00 pm Harshal Flood MD [Partnered Physician] - 12/27/18 8:30 am
[2018-12-16] MEDS: Piperacillin/Tazobactam 3.375 GM in 0.9 % Sodium Chloride Mini Bag 100 ML IVPB SCH ×2 (16:40→23:45)
[2018-12-16 17:58] LABS: INR 1.1; Prothrombin Time 12.3 Seconds (9.4-12.1)
[2018-12-17] MEDS: Ipratropium/Albuterol Neb 3 ML IH SCH ×6 (00:01→20:39)
[2018-12-17] MEDS: *HR* Heparin 5,000 UNIT/ML VIAL SQ SCH ×3 (05:58→20:13)
[2018-12-17] MEDS: Tiotropium 18 MCG inhalation IH SCH (07:42)
[2018-12-17] MEDS: Isosorbide MONOnitrate (24 HR) 60 MG TAB.ER.24H PO SCH ×2 (08:43→20:05)
[2018-12-17] MEDS: Famotidine 20 MG TABLET PO SCH ×2 (08:43→17:48)
[2018-12-17] MEDS: Sennosides/Docusate Sodium TABLET PO SCH ×2 (08:44→20:04)
[2018-12-17] MEDS: Piperacillin/Tazobactam 3.375 GM in 0.9 % Sodium Chloride Mini Bag 100 ML IVPB SCH ×2 (08:44→15:34)
[2018-12-17] MEDS: *HR* Metformin 500 MG TABLET PO SCH ×2 (08:44→17:48)
[2018-12-17] MEDS: FLUoxetine 20 MG CAPSULE PO SCH (08:44)
[2018-12-17] MEDS: Insulin LISPRO 300 UNITS/3 ML VIAL SQ SCH ×3 (09:40→20:16)
[2018-12-17 10:41] LABS: INR 1.1; Prothrombin Time 12.6 Seconds (9.4-12.1)
--- NOTE | 2018-12-17 10:52 | Cardiothoracic Progress Note ---
Date of Encounter: 12/17/18 Time of Encounter: 10:50 - Assessment and plan (1) Granulomatous lung disease Current Visit: Yes Status: Acute The assessment and plan as outlined above was discussed with the patient and/or family members who expressed understanding and agreement. All questions were answered. rounded with nurse increase ivf. labs and xray in the am. vanco to antibx for leukocytosis which maybe related to surgery (2) Hypertension Current Visit: No Status: Chronic The assessment and plan as outlined above was discussed with the patient and/or family members who expressed understanding and agreement. All questions were answered. Qualifiers: Hypertension type: essential hypertension Qualified Code(s): I10 - Essential (primary) hypertension (3) Diabetes mellitus, type II Current Visit: No Status: Chronic The assessment and plan as outlined above was discussed with the patient and/or family members who expressed understanding and agreement. All questions were answered. 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 All questions were answered. no changes in chest tube management Qualifiers: COPD type: emphysema Emphysema type: panlobular Qualified Code(s): J43.1 - Panlobular emphysema (5) Acute renal insufficiency Current Visit: Yes Status: Acute The assessment and plan as outlined above was discussed with the patient and/or family members who expressed understanding and agreement. All questions were answered. labs improved today bmp in the am. resolved acute insufficiency due to poor po intake - Subjective Interval history: p Vital Signs, Last 4 Hours Temp Pulse Resp BP Pulse Ox 12/17/18 07:43 22 95 12/17/18 07:36 97.0 F L 79 22 137/58 94 Oxgyen Flow Rate Oxygen Flow Rate (LPM) 4 Weight 12/15/18 12/16/18 12/17/18 23:59 23:59 23:59 Weight 95.9 kg 95.2 kg - Physical Examination General: Conversant HEENT: Atraumatic, Normocephaly Cardiac: Reg Rate and Rhythm, Normal S1 and S2 Incision: No signs of infection, Dry/intact dressing Chest tubes: Minimal drainage Lungs: Other (mild rhonchi. ) Neuro: Alert and responsive, Other (anwers some questions correctoly ) Vascular: Normal capillary refill Abdomen: Soft, Non-tender - Labs 12/16/18 09:41 12/16/18 09:41 Lab Results, Last 24 hours 12/16/18 12/16/18 12/17/18 09:41 17:28 10:19 WBC 18.2 H Hgb 13.1 Hct 38.8 Plt Count 175 INR 1.1 1.1 - Imaging Chest Xray: image reviewed Consult Discharge Plan - Plan Additional Instructions: Please go to Out Patient testing on 2018 around 0730AM to get an x-ray done before you go see Dr. Flood. The office is sending the order over to out patient testing at the [facility]. Referrals: Ally Bermudez CNP [Primary Care Provider] - 12/19/18 3:00 pm Harshal Flood MD [Partnered Physician] - 12/27/18 8:30 am
[2018-12-17] MEDS ORDERED: *HR* Dextrose 50 % in Water (Syg) 50 ML SYRINGE IVP PRN (10:54)
[2018-12-17] MEDS ORDERED: D5% in Water 1,000 ML IVC PRN (10:54)
[2018-12-17] MEDS ORDERED: Dextrose Gel 15 GM/37.5 ML TUBE PO PRN ×2 (10:54)
[2018-12-17 12:00] LABS: Hematocrit 39.6 % (37.5-50.1); Hemoglobin 13.1 g/dL (12.9-16.9); Mean Corpuscular HGB Conc 33.1 g/dL (31.6-35.5); Mean Corpuscular Hemoglobin 32.1 pg (28.0-33.3); Mean Corpuscular Volume 97.1 fL (83.0-100.0); Mean Platelet Volume 11.6 fL (9.4-12.4); Platelet Count 298 K/mcL (140-400); Red Blood Count 4.08 M/mcL (4.19-5.50); Red Cell Distribution Width 15.3 % (11.5-14.5); White Blood Count 21.9 K/mcL (4.3-11.1)
[2018-12-17 12:20] LABS: BUN/Creatinine Ratio 32 (6-26); Blood Urea Nitrogen 23 mg/dL (6-20); Calcium 8.4 mg/dL (8.6-10.3); Carbon Dioxide 26 mEq/L (23-29); Chloride 107 mEq/L (98-107); Glucose 257 mg/dL (70-105); Magnesium 2.1 mg/dL (1.6-2.6); Osmolality,Calculated 304 (280-300); Potassium 3.8 mEq/L (3.5-5.1); Sodium 141 mEq/L (136-145); eGFR For African Americans > 60 (> 60); eGFR For Non-African Americans > 60 (> 60)
[2018-12-17 13:28] LABS: Appearance,CSF Clear (Clear); Red Blood Cell,CSF < 0.002 M/mcL
--- NOTE | 2018-12-17 13:48 | Neurology Progress Note ---
Date of Encounter: 12/17/18 Time of Encounter: 13:44 Assessment and Plan (1) Altered mental status Current Visit: Yes Status: Acute Patient has been experiencing fluctuating altered mental status without any focal neurological deficits. Patient does reports rather diffuse pain which include his head neck and upper trunk without clear location may be related to acute systemic illnesses that can cause muscle ache. This does not appear to be real meningeal sign. MRI of the brain showed no acute intracranial abnormality. CSF study showed normal white blood cell count therefore [employer] infection is unlikely. Fluctuating altered mental status likely related to underlying medical conditions. I will sign off at this time. I will be happy to reevaluate him at your request Qualifiers: Altered mental status type: delirium Qualified Code(s): R41.0 - Disorientation, unspecified Subjective Principal diagnosis: altered mental status Interval history: Patient is seen and examined at the bedside. Patient just came back from lumbar puncture under fluoroscopy. Patient is interviewed in the presence of his . Patient is wide awake and awake and is comprehensive. Patient reports diffuse pain with unknown location. also reports that the patient makes facial grimace indicating presence of pain however, no clear location of the pain has been reported. Patient admits headaches and neck pain at the same time he also has rather diffuse pain involving his upper trunk Patient completed MRI of the brain without contrast yesterday which demonstrated no acute intracranial abnormality. Patient completed lumbar puncture and her fluoroscopy and routine CSF study showed normal white cell count. Culture and Gram stain results are pending Objective - Constitutional Vitals: Temp Pulse Resp BP Pulse Ox 97.0 F L 76 18 134/72 97 12/17/18 11:45 12/17/18 11:45 12/17/18 11:46 12/17/18 11:45 12/17/18 11:46 - Neurological Exam Sensorimotor examination: Present: other (Grossly intact) Motor Examination: Present: grossly full strength in all extremities Motor examination - right side: 5/5: deltoids, biceps, triceps, wrist flexion, wrist extension, cota, hip flexors, tibialis Anterior, quadriceps, toe extension (EHL), plantarflexion Motor examination - left side: 5/5: deltoids, biceps, triceps, wrist flexion, wrist extension, hip flexors, cota, quadriceps, tibialis Anterior, toe extension (EHL), plantarflexion Sensation intact: Present: other (Grossly intact) Posture: Present: other (None) Reflex and gait examination: other (Gait is not assessed) Reflexes: Biceps: 2+, Triceps: 2+, Brachioradialis: 2+, Patella: 2+, Achilles: 2+ Mental Status Examination: Present: awake, alert, oriented to person, oriented to place, oriented to time, follows commands appropriately, answers questions appropriately, no agnosia, no aphasia, no aproxia Cranial nerve examination: Present: PERRL, EOMI, visual landis intact, corneal reflexes brisk symmetrically, sensory to face intact, mastication intact, no facial asymmetry is present, no dysarthria, hearing is intact symmetrically, soft palate elevates bilaterally upon phonation, gag reflex intact, flexes SCM and trapezius muscles symmetrically with full power, tongue protrudes midline, no atrophy or facial fasiculations present Results - Laboratory Findings CBC and BMP: 12/17/18 10:19 12/17/18 10:19 Abnormal lab findings: Abnormal lab results WBC 21.9 K/mcL (4.3-11.1) H 12/17/18 10:19 RBC 4.08 M/mcL (4.19-5.50) L 12/17/18 10:19 Hgb 12.5 g/dL (12.9-16.9) L D 12/15/18 00:58 Hct 36.8 % (37.5-50.1) L 12/15/18 00:58 RDW 15.3 % (11.5-14.5) H 12/17/18 10:19 Band Neutrophils % 16.0 % (0-4) H 12/13/18 00:37 Myelocytes % 2.0 % (0) H 12/13/18 00:37 Neutrophils # 10.9 K/mcL (1.6-8.9) H 12/13/18 00:37 Lymphocytes # 0.2 K/mcL (0.6-4.6) L 12/13/18 00:37 Nucleated RBCs/100 WBC 0.2 /100 WBC (0) H 12/13/18 00:37 Polychromasia 1+ (Not Present) A 12/13/18 00:37 PT 12.6 Seconds (9.4-12.1) H 12/17/18 10:19 Sodium 134 mEq/L (136-145) L 12/15/18 02:00 Potassium 5.2 mEq/L (3.5-5.1) H 12/13/18 09:17 Chloride 96 mEq/L (98-107) L 12/12/18 09:22 Carbon Dioxide 22 mEq/L (23-29) L 12/15/18 02:00 BUN 23 mg/dL (6-20) H 12/17/18 10:19 Creatinine 3.07 mg/dL (0.70-1.30) H 12/13/18 09:17 Est GFR ( Amer) 26 (> 60) L 12/13/18 09:17 Est GFR (Non-Af Amer) 21 (> 60) L 12/13/18 09:17 BUN/Creatinine Ratio 32 (6-26) H 12/17/18 10:19 Glucose 257 mg/dL (70-105) H 12/17/18 10:19 POC Glucose 184 mg/dL (70-99) H 12/16/18 20:50 Calculated Osmolality 304 (280-300) H 12/17/18 10:19 Calcium 8.4 mg/dL (8.6-10.3) L 12/17/18 10:19 Iron 28 mcg/dL (65-175) L 12/08/18 03:49 % Saturation 10 % (20-55) L 12/08/18 03:49 Transferrin 201 mg/dL (203-362) L 12/08/18 03:49 Urine Color [place] (Yellow) A 12/11/18 18:14 Ur Specific [place] > 1.030 (1.010-1.025) H 12/11/18 18:14 Urine Protein 30 mg/dL (Neg-Trace) H 12/11/18 18:14 Urine Glucose (UA) 250 mg/dL (Normal) H 12/11/18 18:14 Urine Ketones Trace mg/dL (Negative) H 12/11/18 18:14 Urine Nitrite Positive (Negative) A 12/11/18 18:14 Urine Bilirubin Small (Negative) H 12/11/18 18:14 Ur Leukocyte Esterase Small (Negative) H 12/11/18 18:14 Urine Microscopic RBC 5-15 per hpf (0-3) H 12/11/18 18:14 Urine Microscopic WBC 5-15 per hpf (0-3) H 12/11/18 18:14 Ur Squamous Epith Cells Many per lpf (None-Few) H 12/11/18 18:14 Hyaline Casts Moderate per lpf (None-Few) H 12/11/18 18:14 Ur Culture Indicated? YES (NO) A 12/11/18 18:14 Consult Discharge Plan - Plan Additional Instructions: Please go to Out Patient testing on 2018 around 0730AM to get an x-ray done before you go see Dr. Flood. The office is sending the order over to out patient testing at the [facility]. Referrals: Ally Bermudez CNP [Primary Care Provider] - 12/19/18 3:00 pm Harshal Flood MD [Partnered Physician] - 12/27/18 8:30 am
[2018-12-17 13:56] LABS: Glucose,CSF 159 mg/dL (40-70); Total Protein,CSF 37 mg/dL (15-45)
[2018-12-17] MEDS: 0.9 % Sodium Chloride 1,000 ML IVC SCH (15:33)
[2018-12-17 16:55] LABS: ABG Base Excess 1 mEq/L (-2 to 3); ABG HCO3 26 mEq/L (21-27); ABG Oxygen Saturation 93 % (95-98); ABG PCO2 41 mmHg (35-45); ABG PH 7.41 pH Units (7.32-7.45); ABG PO2 68 mmHg (85-104); ABG TCO2 27 mEq/L (20-26)
[2018-12-18] MEDS: Ipratropium/Albuterol Neb 3 ML IH SCH ×6 (00:26→20:56)
[2018-12-18] MEDS: Piperacillin/Tazobactam 3.375 GM in 0.9 % Sodium Chloride Mini Bag 100 ML IVPB SCH ×4 (00:32→23:37)
[2018-12-18 01:19] LABS: Hematocrit 39.7 % (37.5-50.1); Hemoglobin 12.9 g/dL (12.9-16.9); Mean Corpuscular HGB Conc 32.5 g/dL (31.6-35.5); Mean Corpuscular Hemoglobin 31.8 pg (28.0-33.3); Mean Corpuscular Volume 97.8 fL (83.0-100.0); Mean Platelet Volume 10.9 fL (9.4-12.4); Platelet Count 354 K/mcL (140-400); Red Blood Count 4.06 M/mcL (4.19-5.50); Red Cell Distribution Width 15.3 % (11.5-14.5); White Blood Count 18.9 K/mcL (4.3-11.1)
[2018-12-18 01:37] LABS: BUN/Creatinine Ratio 25 (6-26); Blood Urea Nitrogen 16 mg/dL (6-20); Carbon Dioxide 24 mEq/L (23-29); Chloride 113 mEq/L (98-107); Glucose 185 mg/dL (70-105); Magnesium 1.9 mg/dL (1.6-2.6); Osmolality,Calculated 306 (280-300); Potassium 3.5 mEq/L (3.5-5.1); Sodium 145 mEq/L (136-145); eGFR For African Americans > 60 (> 60); eGFR For Non-African Americans > 60 (> 60)
[2018-12-18] MEDS: 0.9 % Sodium Chloride 1,000 ML IVC SCH ×4 (02:17→22:50)
[2018-12-18] MEDS: Nystatin Cream 15 GM TUBE TP SCH ×3 (03:30→20:18)
[2018-12-18] MEDS: *HR* Heparin 5,000 UNIT/ML VIAL SQ SCH ×3 (04:58→20:19)
[2018-12-18] MEDS: Tiotropium 18 MCG inhalation IH SCH (07:47)
[2018-12-18] MEDS: Insulin LISPRO 300 UNITS/3 ML VIAL SQ SCH ×4 (09:04→22:23)
[2018-12-18] MEDS: Isosorbide MONOnitrate (24 HR) 60 MG TAB.ER.24H PO SCH ×2 (09:10→20:19)
--- NOTE | 2018-12-18 09:40 | Cardiothoracic Progress Note ---
Date of Encounter: 12/18/18 Time of Encounter: 09:38 - Assessment and plan (1) Granulomatous lung disease Current Visit: Yes Status: Acute The assessment and plan as outlined above was discussed with the patient and/or family members who expressed understanding and agreement. All questions were answered. rounded with nurse increase ivf. labs and xray in the am. vanco to antibx for leukocytosis which maybe related to surgery (2) Hypertension Current Visit: No Status: Chronic The assessment and plan as outlined above was discussed with the patient and/or family members who expressed understanding and agreement. All questions were answered. Qualifiers: Hypertension type: essential hypertension Qualified Code(s): I10 - Essential (primary) hypertension (3) Diabetes mellitus, type II Current Visit: No Status: Chronic The assessment and plan as outlined above was discussed with the patient and/or family members who expressed understanding and agreement. All questions were answered. 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 All questions were answered. no changes in chest tube management Qualifiers: COPD type: emphysema Emphysema type: panlobular Qualified Code(s): J43.1 - Panlobular emphysema (5) Acute renal insufficiency Current Visit: Yes Status: Acute The assessment and plan as outlined above was discussed with the patient and/or family members who expressed understanding and agreement. All questions were answered. labs improved today bmp in the am. resolved acute insufficiency due to poor po intake - Subjective Interval history: p Vital Signs, Last 4 Hours Temp Pulse Resp BP Pulse Ox 12/18/18 09: 83 12/18/18 08:07 16 96 12/18/18 07:53 97.4 F L 55 26 147/71 93 Oxgyen Flow Rate Oxygen Flow Rate (LPM) 2 Clinical Data, last 8 Hours Output, Chest Tube Drainage 28 Amount [Left Lateral Chest] Output, Chest Tube Drainage 45 Amount [Left Lateral Chest] Weight 12/16/18 12/17/18 12/18/18 23:59 23:59 23:59 Weight 95.9 kg 95.2 kg - Physical Examination General: Other (answers some questions) HEENT: Atraumatic, Normocephaly Cardiac: Reg Rate and Rhythm, Normal S1 and S2 Incision: No signs of infection, Dry/intact dressing, Open to air Chest tubes: Minimal drainage, Air leak Lungs: Other (rhonchi that clears with cough, thin and clear chest tube drainage ) Neuro: Motor nerves intact Abdomen: Soft, Non-tender Extremities: No Clubbing, No Cyanosis, No Edema, Normal Pulses - Labs 12/18/18 01:00 12/18/18 01:00 Lab Results, Last 24 hours 12/17/18 12/17/18 12/17/18 10:19 10:19 10:19 WBC 21.9 H Hgb 13.1 Hct 39.6 Plt Count 298 D INR 1.1 Sodium 141 Potassium 3.8 Chloride 107 Carbon Dioxide 26 BUN 23 H Creatinine 0.72 Glucose 257 H Calcium 8.4 L Magnesium 2.1 12/18/18 12/18/18 01:00 01:00 WBC 18.9 H Hgb 12.9 Hct 39.7 Plt Count 354 INR Sodium 145 Potassium 3.5 Chloride 113 H Carbon Dioxide 24 BUN 16 Creatinine 0.64 L Glucose 185 H Calcium 8.0 L Magnesium 1.9 - Imaging Chest Xray: image reviewed Consult Discharge Plan - Plan Additional Instructions: Please go to Out Patient testing on 2018 around 0730AM to get an x-ray done before you go see Dr. Flood. The office is sending the order over to out patient testing at the [facility]. Referrals: Ally Bermudez CNP [Primary Care Provider] - 12/19/18 3:00 pm Harshal Flood MD [Partnered Physician] - 12/27/18 8:30 am
[2018-12-18] MEDS ORDERED: Potassium Chloride Elixir 20 MEQ/15 ML UDC GTUBE ONE ×2 (09:41→18:00)
[2018-12-18] MEDS ORDERED: Folic Acid 1 MG, Thiamine (B-1) 100 MG in 0.9 % Sodium Chloride 100 ML IVPB ONE (09:43)
[2018-12-18] MEDS ORDERED: Thiamine (B-1) 200 MG/2 ML VIAL IM ONE (09:43)
[2018-12-18] MEDS: *HR* Metformin 500 MG TABLET PO SCH ×2 (12:00→16:59)
[2018-12-18] MEDS: Famotidine 20 MG TABLET PO SCH ×2 (12:00→16:59)
[2018-12-18] MEDS: FLUoxetine 20 MG CAPSULE PO SCH (12:00)
[2018-12-18] MEDS: Sennosides/Docusate Sodium TABLET PO SCH ×2 (12:00→20:19)
[2018-12-19] MEDS: Ipratropium/Albuterol Neb 3 ML IH SCH ×6 (00:36→20:02)
[2018-12-19 00:56] LABS: Hematocrit 36.9 % (37.5-50.1); Hemoglobin 11.8 g/dL (12.9-16.9); Mean Corpuscular Hemoglobin 32.5 pg (28.0-33.3); Mean Corpuscular Volume 101.7 fL (83.0-100.0); Mean Platelet Volume 10.8 fL (9.4-12.4); Platelet Count 396 K/mcL (140-400); Red Blood Count 3.63 M/mcL (4.19-5.50); Red Cell Distribution Width 15.4 % (11.5-14.5); White Blood Count 14.4 K/mcL (4.3-11.1)
[2018-12-19 01:17] LABS: BUN/Creatinine Ratio 19 (6-26); Blood Urea Nitrogen 10 mg/dL (6-20); Calcium 7.6 mg/dL (8.6-10.3); Carbon Dioxide 26 mEq/L (23-29); Chloride 114 mEq/L (98-107); Glucose 173 mg/dL (70-105); Osmolality,Calculated 307 (280-300); Potassium 3.5 mEq/L (3.5-5.1); Sodium 147 mEq/L (136-145); eGFR For African Americans > 60 (> 60); eGFR For Non-African Americans > 60 (> 60)
[2018-12-19] MEDS: *HR* Heparin 5,000 UNIT/ML VIAL SQ SCH ×3 (04:58→22:31)
[2018-12-19] MEDS: Famotidine 20 MG TABLET PO SCH ×3 (09:00→15:26)
[2018-12-19] MEDS: 0.9 % Sodium Chloride 1,000 ML IVC SCH ×2 (09:30→22:03)
[2018-12-19] MEDS: Piperacillin/Tazobactam 3.375 GM in 0.9 % Sodium Chloride Mini Bag 100 ML IVPB SCH ×2 (09:30→15:27)
[2018-12-19] MEDS: Insulin LISPRO 300 UNITS/3 ML VIAL SQ SCH ×4 (09:31→22:28)
[2018-12-19] MEDS: *HR* Metformin 500 MG TABLET PO SCH ×2 (09:32→15:26)
[2018-12-19] MEDS: Nystatin Cream 15 GM TUBE TP SCH ×2 (09:32→22:30)
[2018-12-19] MEDS: Sennosides/Docusate Sodium TABLET PO SCH ×3 (09:33→22:29)
[2018-12-19] MEDS: Isosorbide MONOnitrate (24 HR) 60 MG TAB.ER.24H PO SCH ×2 (09:41→22:29)
[2018-12-19] MEDS: FLUoxetine 20 MG CAPSULE PO SCH ×2 (09:47→12:30)
[2018-12-19] MEDS: Tiotropium 18 MCG inhalation IH SCH (11:34)
[2018-12-19] MEDS: Acetaminophen 325 MG TABLET PO PRN (12:34)
--- NOTE | 2018-12-19 12:57 | Cardiothoracic Progress Note ---
Date of Encounter: 12/19/18 Time of Encounter: 12:54 - Assessment and plan (1) Granulomatous lung disease Current Visit: Yes Status: Acute The assessment and plan as outlined above was discussed with the patient and/or family members who expressed understanding and agreement. All questions were answered. rounded with nurse discussed with daughter all the positives in the last 24 hours. remove mckay advance diet (2) Hypertension Current Visit: No Status: Chronic The assessment and plan as outlined above was discussed with the patient and/or family members who expressed understanding and agreement. All questions were answered. Qualifiers: Hypertension type: essential hypertension Qualified Code(s): I10 - Essential (primary) hypertension (3) Diabetes mellitus, type II Current Visit: No Status: Chronic The assessment and plan as outlined above was discussed with the patient and/or family members who expressed understanding and agreement. All questions were answered. 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 All questions were answered. no changes in chest tube management Qualifiers: COPD type: emphysema Emphysema type: panlobular Qualified Code(s): J43.1 - Panlobular emphysema (5) Acute renal insufficiency Current Visit: Yes Status: Acute The assessment and plan as outlined above was discussed with the patient and/or family members who expressed understanding and agreement. All questions were answered. labs improved today bmp in the am. resolved acute insufficiency due to poor po intake - Subjective Interval history: p Vital Signs, Last 4 Hours Temp Pulse Resp BP Pulse Ox 12/19/18 11:36 18 97 12/19/18 11:31 97.5 F L 80 18 132/86 97 12/19/18 09:00 58 Oxgyen Flow Rate Oxygen Flow Rate (LPM) 2 Clinical Data, last 8 Hours Output, Chest Tube Drainage 30 Amount [Left Lateral Chest] Weight 12/17/18 12/18/18 12/19/18 23:59 23:59 23:59 Weight 95.2 kg - Physical Examination General: Conversant, No Apparent Distress, Well developed, Well nourished HEENT: Atraumatic, Normocephaly Cardiac: Reg Rate and Rhythm, Normal S1 and S2 Incision: No signs of infection Chest tubes: Minimal drainage, Air leak Lungs: Normal Breath Sounds Neuro: Alert and responsive, No focal deficits noted, Cranial nerves intact, Motor nerves intact, Sensory nerves intact Abdomen: Soft, Non-tender Extremities: No Edema, Normal Pulses - Labs 12/19/18 00:33 12/19/18 00:33 Lab Results, Last 24 hours 12/19/18 12/19/18 00:33 00:33 WBC 14.4 H Hgb 11.8 L Hct 36.9 L Plt Count 396 Sodium 147 H Potassium 3.5 Chloride 114 H Carbon Dioxide 26 BUN 10 Creatinine 0.54 L Glucose 173 H Calcium 7.6 L Consult Discharge Plan - Plan Additional Instructions: Please go to Out Patient testing on 2018 around 0730AM to get an x-ray done before you go see Dr. Flood. The office is sending the order over to out patient testing at the [facility]. Referrals: Ally Bermudez CNP [Primary Care Provider] - 12/19/18 3:00 pm Harshal Flood MD [Partnered Physician] - 12/27/18 8:30 am
[2018-12-19] MEDS ORDERED: Potassium Chloride Elixir 20 MEQ/15 ML UDC PO ONE (13:06)
[2018-12-19] MEDS: traMADol 50 MG TABLET PO PRN (15:31)
[2018-12-20] MEDS: Ipratropium/Albuterol Neb 3 ML IH SCH ×6 (00:19→20:16)
[2018-12-20] MEDS: Piperacillin/Tazobactam 3.375 GM in 0.9 % Sodium Chloride Mini Bag 100 ML IVPB SCH ×3 (00:46→16:49)
[2018-12-20] MEDS: traMADol 50 MG TABLET PO PRN ×2 (02:58→22:35)
[2018-12-20 05:13] LABS: Hematocrit 32.3 % (37.5-50.1); Hemoglobin 10.3 g/dL (12.9-16.9); Mean Corpuscular HGB Conc 31.9 g/dL (31.6-35.5); Mean Corpuscular Hemoglobin 31.8 pg (28.0-33.3); Mean Corpuscular Volume 99.7 fL (83.0-100.0); Mean Platelet Volume 10.2 fL (9.4-12.4); Platelet Count 426 K/mcL (140-400); Red Blood Count 3.24 M/mcL (4.19-5.50); Red Cell Distribution Width 15.1 % (11.5-14.5); White Blood Count 11.1 K/mcL (4.3-11.1)
[2018-12-20 05:31] LABS: BUN/Creatinine Ratio 15 (6-26); Blood Urea Nitrogen 8 mg/dL (6-20); Calcium 6.9 mg/dL (8.6-10.3); Carbon Dioxide 22 mEq/L (23-29); Chloride 110 mEq/L (98-107); Glucose 124 mg/dL (70-105); Osmolality,Calculated 292 (280-300); Potassium 3.4 mEq/L (3.5-5.1); Sodium 141 mEq/L (136-145); eGFR For African Americans > 60 (> 60); eGFR For Non-African Americans > 60 (> 60)
[2018-12-20] MEDS: 0.9 % Sodium Chloride 1,000 ML IVC SCH ×2 (05:54→09:43)
[2018-12-20] MEDS: *HR* Heparin 5,000 UNIT/ML VIAL SQ SCH ×3 (05:55→22:36)
[2018-12-20] MEDS: Insulin LISPRO 300 UNITS/3 ML VIAL SQ SCH ×4 (07:40→19:40)
[2018-12-20] MEDS: Tiotropium 18 MCG inhalation IH SCH (07:46)
[2018-12-20] MEDS: Famotidine 20 MG TABLET PO SCH ×2 (07:56→16:48)
[2018-12-20] MEDS: *HR* Metformin 500 MG TABLET PO SCH ×2 (07:56→16:48)
[2018-12-20] MEDS: Sennosides/Docusate Sodium TABLET PO SCH ×2 (07:56→19:36)
[2018-12-20] MEDS: FLUoxetine 20 MG CAPSULE PO SCH (07:56)
[2018-12-20] MEDS: Isosorbide MONOnitrate (24 HR) 60 MG TAB.ER.24H PO SCH ×2 (07:56→19:36)
[2018-12-20] MEDS ORDERED: Potassium Chloride Elixir 20 MEQ/15 ML UDC PO ONE (08:11)
--- NOTE | 2018-12-20 11:45 | Cardiothoracic Progress Note ---
Date of Encounter: 12/20/18 Time of Encounter: 11:43 - Assessment and plan (1) Granulomatous lung disease Current Visit: Yes Status: Acute The assessment and plan as outlined above was discussed with the patient and/or family members who expressed understanding and agreement. All questions were answered. rounded with nurse labs and xray tomorrow. discussed antibx coverage with pharm. (2) Hypertension Current Visit: No Status: Chronic The assessment and plan as outlined above was discussed with the patient and/or family members who expressed understanding and agreement. All questions were answered. Qualifiers: Hypertension type: essential hypertension Qualified Code(s): I10 - Essential (primary) hypertension (3) Diabetes mellitus, type II Current Visit: No Status: Chronic The assessment and plan as outlined above was discussed with the patient and/or family members who expressed understanding and agreement. All questions were answered. 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 All questions were answered. no changes in chest tube management Qualifiers: COPD type: emphysema Emphysema type: panlobular Qualified Code(s): J43.1 - Panlobular emphysema - Subjective Interval history: p Vital Signs, Last 4 Hours Temp Pulse Resp BP Pulse Ox 12/20/18 11:10 98.0 F 82 20 112/57 92 12/20/18 07:46 17 100 Oxgyen Flow Rate Oxygen Flow Rate (LPM) 2 Clinical Data, last 8 Hours Output, Chest Tube Drainage 30 Amount [Left Lateral Chest] - Physical Examination General: Conversant, No Apparent Distress, Well developed HEENT: Atraumatic, Normocephaly Cardiac: Reg Rate and Rhythm, Normal S1 and S2 Incision: No signs of infection, Dry/intact dressing Chest tubes: Minimal drainage, Air leak Lungs: Normal Breath Sounds Neuro: Alert and responsive, No focal deficits noted, Cranial nerves intact, Motor nerves intact, Sensory nerves intact Abdomen: Soft Extremities: No Edema - Labs 12/20/18 04:53 12/20/18 04:53 Lab Results, Last 24 hours 12/20/18 12/20/18 04:53 04:53 WBC 11.1 Hgb 10.3 L D Hct 32.3 L Plt Count 426 H Sodium 141 Potassium 3.4 L Chloride 110 H Carbon Dioxide 22 L BUN 8 Creatinine 0.53 L Glucose 124 H Calcium 6.9 L Consult Discharge Plan - Plan Additional Instructions: Please go to Out Patient testing on 2018 around 0730AM to get an x-ray done before you go see Dr. Flood. The office is sending the order over to out patient testing at the [facility]. Referrals: Ally Bermudez CNP [Primary Care Provider] - 12/19/18 3:00 pm Harshal Flood MD [Partnered Physician] - 12/27/18 8:30 am
[2018-12-20] MEDS: Nystatin Cream 15 GM TUBE TP SCH ×2 (12:31→19:39)
[2018-12-21] MEDS: Ipratropium/Albuterol Neb 3 ML IH SCH ×6 (00:08→20:09)
[2018-12-21] MEDS: Piperacillin/Tazobactam 3.375 GM in 0.9 % Sodium Chloride Mini Bag 100 ML IVPB SCH ×3 (00:55→16:28)
[2018-12-21] MEDS: *HR* Heparin 5,000 UNIT/ML VIAL SQ SCH ×3 (05:34→21:14)
[2018-12-21 05:44] LABS: Hematocrit 31.3 % (37.5-50.1); Hemoglobin 10.2 g/dL (12.9-16.9); Mean Corpuscular HGB Conc 32.6 g/dL (31.6-35.5); Mean Corpuscular Hemoglobin 32.2 pg (28.0-33.3); Mean Corpuscular Volume 98.7 fL (83.0-100.0); Mean Platelet Volume 10.4 fL (9.4-12.4); Platelet Count 472 K/mcL (140-400); Red Blood Count 3.17 M/mcL (4.19-5.50); White Blood Count 11.2 K/mcL (4.3-11.1)
[2018-12-21 06:07] LABS: % Iron Saturation 29 % (20-55); BUN/Creatinine Ratio 11 (6-26); Blood Urea Nitrogen 7 mg/dL (6-20); Carbon Dioxide 25 mEq/L (23-29); Chloride 104 mEq/L (98-107); Glucose 202 mg/dL (70-105); Iron 46 mcg/dL (65-175); Magnesium 1.5 mg/dL (1.6-2.6); Osmolality,Calculated 288 (280-300); Phosphorous 2.4 mg/dL (2.7-4.5); Potassium 3.2 mEq/L (3.5-5.1); Sodium 137 mEq/L (136-145); Transferrin 112 mg/dL (203-362); eGFR For African Americans > 60 (> 60); eGFR For Non-African Americans > 60 (> 60)
[2018-12-21] MEDS: Tiotropium 18 MCG inhalation IH SCH (07:36)
[2018-12-21] MEDS: Sennosides/Docusate Sodium TABLET PO SCH ×2 (07:52→21:13)
[2018-12-21] MEDS: Isosorbide MONOnitrate (24 HR) 60 MG TAB.ER.24H PO SCH ×2 (08:12→21:13)
[2018-12-21] MEDS: FLUoxetine 20 MG CAPSULE PO SCH (08:12)
[2018-12-21] MEDS: Famotidine 20 MG TABLET PO SCH ×2 (08:12→16:28)
[2018-12-21] MEDS: *HR* Metformin 500 MG TABLET PO SCH ×2 (08:12→16:27)
[2018-12-21] MEDS: Insulin LISPRO 300 UNITS/3 ML VIAL SQ SCH ×4 (08:14→21:10)
[2018-12-21] MEDS: Nystatin Cream 15 GM TUBE TP SCH ×2 (08:14→21:16)
[2018-12-21] MEDS ORDERED: Iron Sucrose Complex 400 MG in 0.9 % Sodium Chloride 250 ML IVPB ONE (08:27)
--- NOTE | 2018-12-21 08:39 | Cardiothoracic Progress Note ---
Date of Encounter: 12/21/18 Time of Encounter: 08:37 - Assessment and plan (1) Granulomatous lung disease Current Visit: Yes Status: Acute The assessment and plan as outlined above was discussed with the patient and/or family members who expressed understanding and agreement. All questions were answered. rounded with nurse mg cee iron called daughter and left a message regarding her dad. (2) Hypertension Current Visit: No Status: Chronic The assessment and plan as outlined above was discussed with the patient and/or family members who expressed understanding and agreement. All questions were answered. Qualifiers: Hypertension type: essential hypertension Qualified Code(s): I10 - Essential (primary) hypertension (3) Diabetes mellitus, type II Current Visit: No Status: Chronic The assessment and plan as outlined above was discussed with the patient and/or family members who expressed understanding and agreement. All questions were answered. change to ssi Qualifiers: Diabetes mellitus meterman insulin use: with meterman use Diabetes mellitus complication status: without complication Qualified Code(s): E11.9 - Type 2 diabetes mellitus without complications; Z79.4 - halfway (current) use of insulin (4) COPD (chronic obstructive pulmonary disease) Current Visit: No Status: Acute The assessment and plan as outlined above was discussed with the patient and/or family members who expressed understanding and agreement. All questions were answered. no changes in chest tube management Qualifiers: COPD type: emphysema Emphysema type: panlobular Qualified Code(s): J43.1 - Panlobular emphysema - Subjective Interval history: p Vital Signs, Last 4 Hours Temp Pulse Resp BP Pulse Ox 12/21/18 07:40 98.8 F 71 19 152/76 99 12/21/18 07:35 18 92 12/21/18 04:39 16 92 Oxgyen Flow Rate Oxygen Flow Rate (LPM) 2 Clinical Data, last 8 Hours Output, Chest Tube Drainage 20 Amount [Left Lateral Chest] Output, Urine Amount 400 Output, Urine Amount 450 Weight 12/19/18 12/20/18 12/21/18 23:59 23:59 23:59 Weight 99.2 kg - Physical Examination General: Conversant, No Apparent Distress, Well developed HEENT: Atraumatic, Normocephaly Cardiac: Reg Rate and Rhythm, Normal S1 and S2 Incision: No signs of infection, Dry/intact dressing Chest tubes: Minimal drainage, Air leak Lungs: Normal Breath Sounds Neuro: Alert and responsive, No focal deficits noted, Cranial nerves intact, Motor nerves intact, Sensory nerves intact Abdomen: Soft, Non-tender, Other (eating very well) Extremities: No Edema - Labs 12/21/18 04:34 12/21/18 04:34 Lab Results, Last 24 hours 12/21/18 12/21/18 04:34 04:34 WBC 11.2 H Hgb 10.2 L Hct 31.3 L Plt Count 472 H Sodium 137 Potassium 3.2 L Chloride 104 Carbon Dioxide 25 BUN 7 Creatinine 0.64 L Glucose 202 H Calcium 7.0 L Magnesium 1.5 L - Imaging Chest Xray: image reviewed Consult Discharge Plan - Plan Additional Instructions: Please go to Out Patient testing on 2018 around 0730AM to get an x-ray done before you go see Dr. Flood. The office is sending the order over to out patient testing at the [facility]. Referrals: Ally Bermudez CNP [Primary Care Provider] - 12/19/18 3:00 pm Harshal Flood MD [Partnered Physician] - 12/27/18 8:30 am
[2018-12-21] MEDS: Potassium Chloride 40 MEQ, Lidocaine 1% 2 ML in 0.9 % Sodium Chloride 500 ML IVPB SCH ×2 (09:29→14:03)
[2018-12-21] MEDS: traMADol 50 MG TABLET PO PRN (19:53)
[2018-12-22] MEDS: Ipratropium/Albuterol Neb 3 ML IH SCH ×7 (00:08→23:52)
[2018-12-22] MEDS: Piperacillin/Tazobactam 3.375 GM in 0.9 % Sodium Chloride Mini Bag 100 ML IVPB SCH ×2 (01:07→08:06)
[2018-12-22 04:07] LABS: Hematocrit 31.9 % (37.5-50.1); Hemoglobin 10.3 g/dL (12.9-16.9); Mean Corpuscular HGB Conc 32.3 g/dL (31.6-35.5); Mean Corpuscular Hemoglobin 31.4 pg (28.0-33.3); Mean Corpuscular Volume 97.3 fL (83.0-100.0); Platelet Count 478 K/mcL (140-400); Red Blood Count 3.28 M/mcL (4.19-5.50); Red Cell Distribution Width 14.7 % (11.5-14.5); White Blood Count 11.4 K/mcL (4.3-11.1)
[2018-12-22 04:13] LABS: BUN/Creatinine Ratio 6 (6-26); Blood Urea Nitrogen 4 mg/dL (6-20); Calcium 7.6 mg/dL (8.6-10.3); Carbon Dioxide 27 mEq/L (23-29); Chloride 106 mEq/L (98-107); Glucose 160 mg/dL (70-105); Osmolality,Calculated 284 (280-300); Potassium 3.5 mEq/L (3.5-5.1); Sodium 137 mEq/L (136-145); eGFR For African Americans > 60 (> 60); eGFR For Non-African Americans > 60 (> 60)
[2018-12-22] MEDS: *HR* Heparin 5,000 UNIT/ML VIAL SQ SCH ×3 (06:08→20:50)
[2018-12-22] MEDS: Tiotropium 18 MCG inhalation IH SCH (07:42)
[2018-12-22] MEDS: FLUoxetine 20 MG CAPSULE PO SCH (08:05)
[2018-12-22] MEDS: *HR* Metformin 500 MG TABLET PO SCH ×2 (08:06→16:54)
[2018-12-22] MEDS: Famotidine 20 MG TABLET PO SCH ×2 (08:06→16:54)
[2018-12-22] MEDS: Isosorbide MONOnitrate (24 HR) 60 MG TAB.ER.24H PO SCH ×2 (08:06→20:50)
[2018-12-22] MEDS: Insulin LISPRO 300 UNITS/3 ML VIAL SQ SCH ×4 (08:07→20:38)
[2018-12-22] MEDS: Sennosides/Docusate Sodium TABLET PO SCH (08:14)
[2018-12-22] MEDS: Nystatin Cream 15 GM TUBE TP SCH ×2 (08:14→20:51)
[2018-12-22] MEDS ORDERED: LIDOCAINE 1% IVPB ONE ×3 (08:34→11:15)
[2018-12-22] MEDS ORDERED: SODIUM CHLORIDE 0.9% IVPB ONE ×3 (08:34→11:15)
[2018-12-22] MEDS ORDERED: POTASSIUM CHLORIDE IVPB ONE ×3 (08:34→11:15)
--- NOTE | 2018-12-22 11:40 | Cardiothoracic Progress Note ---
Date of Encounter: 12/22/18 Time of Encounter: 11:38 - Assessment and plan (1) Granulomatous lung disease Current Visit: Yes Status: Acute The assessment and plan as outlined above was discussed with the patient and/or family members who expressed understanding and agreement. All questions were answered. rounded with nurse laureano hinds, called daughter and left a message regarding her dad planning home physical therapy instead of inpatient change antibx to po labs and xray in the am. . (2) Hypertension Current Visit: No Status: Chronic The assessment and plan as outlined above was discussed with the patient and/or family members who expressed understanding and agreement. All questions were answered. Qualifiers: Hypertension type: essential hypertension Qualified Code(s): I10 - Essential (primary) hypertension (3) Diabetes mellitus, type II Current Visit: No Status: Chronic The assessment and plan as outlined above was discussed with the patient and/or family members who expressed understanding and agreement. All questions were answered. change to ssi Qualifiers: Diabetes mellitus retirement insulin use: with retirement use Diabetes mellitus complication status: without complication Qualified Code(s): E11.9 - Type 2 diabetes mellitus without complications; Z79.4 - supervisor intermediates (current) use of insulin (4) COPD (chronic obstructive pulmonary disease) Current Visit: No Status: Acute The assessment and plan as outlined above was discussed with the patient and/or family members who expressed understanding and agreement. All questions were answered. no changes in chest tube management Qualifiers: COPD type: emphysema Emphysema type: panlobular Qualified Code(s): J43.1 - Panlobular emphysema - Subjective Interval history: p Vital Signs, Last 4 Hours Temp Pulse Resp BP Pulse Ox 12/22/18 10:17 98.6 F 72 18 126/71 96 12/22/18 07:43 18 97 12/22/18 07:40 97.9 F 72 18 127/75 95 Oxgyen Flow Rate Oxygen Flow Rate (LPM) 2 Clinical Data, last 8 Hours Output, Urine Amount 400 Output, Urine Amount 950 Output, Urine Amount 1,300 Weight 12/20/18 12/21/18 12/22/18 23:59 23:59 23:59 Weight 99.2 kg - Physical Examination General: Conversant, No Apparent Distress, Well developed, Well nourished HEENT: Atraumatic, Normocephaly, Trachea midline Cardiac: Reg Rate and Rhythm, Normal S1 and S2 Incision: No signs of infection, Dry/intact dressing Chest tubes: Minimal drainage, Air leak, Other (very, very small, rare) Lungs: Normal Breath Sounds Neuro: Alert and responsive, No focal deficits noted, Cranial nerves intact, Motor nerves intact, Sensory nerves intact - Labs 12/22/18 03:39 12/22/18 03:39 Lab Results, Last 24 hours 12/22/18 12/22/18 03:39 03:39 WBC 11.4 H Hgb 10.3 L Hct 31.9 L Plt Count 478 H Sodium 137 Potassium 3.5 Chloride 106 Carbon Dioxide 27 BUN 4 L Creatinine 0.68 L Glucose 160 H Calcium 7.6 L - Imaging Chest Xray: image reviewed Consult Discharge Plan - Plan Additional Instructions: Please go to Out Patient testing on 2018 around 0730AM to get an x-ray done before you go see Dr. Flood. The office is sending the order over to out patient testing at the [facility]. Referrals: Ally Bermudez CNP [Primary Care Provider] - 12/19/18 3:00 pm Harshal Flood MD [Partnered Physician] - 12/27/18 8:30 am
[2018-12-22] MEDS: traMADol 50 MG TABLET PO PRN (15:16)
[2018-12-22] MEDS: Amoxicillin/Clavulanate 500 MG TABLET PO SCH (16:54)
[2018-12-22] MEDS ORDERED: Aminoglycoside Consult 1 EACH MC ONE (17:29)
[2018-12-23 02:41] LABS: Hemoglobin 11.2 g/dL (12.9-16.9); Mean Platelet Volume 9.9 fL (9.4-12.4); Platelet Count 461 K/mcL (140-400); Red Cell Distribution Width 14.6 % (11.5-14.5); White Blood Count 11.3 K/mcL (4.3-11.1)
[2018-12-23 03:02] LABS: BUN/Creatinine Ratio 6 (6-26); Blood Urea Nitrogen 4 mg/dL (6-20); Calcium 8.1 mg/dL (8.6-10.3); Carbon Dioxide 27 mEq/L (23-29); Chloride 106 mEq/L (98-107); Glucose 139 mg/dL (70-105); Osmolality,Calculated 287 (280-300); Sodium 139 mEq/L (136-145); eGFR For African Americans > 60 (> 60); eGFR For Non-African Americans > 60 (> 60)
[2018-12-23] MEDS: Ipratropium/Albuterol Neb 3 ML IH SCH ×4 (03:46→16:02)
[2018-12-23] MEDS: *HR* Heparin 5,000 UNIT/ML VIAL SQ SCH ×2 (04:26→13:23)
[2018-12-23] MEDS: Famotidine 20 MG TABLET PO SCH (09:01)
[2018-12-23] MEDS: Insulin LISPRO 300 UNITS/3 ML VIAL SQ SCH ×2 (09:01→13:22)
[2018-12-23] MEDS: Isosorbide MONOnitrate (24 HR) 60 MG TAB.ER.24H PO SCH (09:02)
[2018-12-23] MEDS: FLUoxetine 20 MG CAPSULE PO SCH (09:02)
[2018-12-23] MEDS: Amoxicillin/Clavulanate 500 MG TABLET PO SCH (09:02)
[2018-12-23] MEDS: *HR* Metformin 500 MG TABLET PO SCH (09:02)
[2018-12-23] MEDS: Nystatin Cream 15 GM TUBE TP SCH (09:03)
--- NOTE | 2018-12-23 09:55 | Physician Discharge Referral ---
ExtendedCare Referral Info Transfer To: [facility] Provider in Charge: ai Provider in Charge after Transfer: PCP Institutional Level of Care: Skilled - Diagnosis (1) Granulomatous lung disease Status: Acute (2) Hypertension Priority: Secondary Status: Chronic (3) Diabetes mellitus, type II Priority: Secondary Status: Chronic (4) COPD (chronic obstructive pulmonary disease) Priority: Secondary Status: Chronic Prognosis: Good Aware of Diagnosis: Patient, Family Aware of Prognosis: Patient, Family - Transfer Medications Home Medications: Albuterol Neb [Proventil Neb] 2.5 mg IH Q8H PRN 12/07/18 [History] Albuterol Sulfate [Proair Hfa] 2 puff IH Q6H PRN 12/07/18 [History] Atenolol 50 mg PO BID 12/07/18 [History] Atorvastatin Calcium [Lipitor] 80 mg PO HS 12/07/18 [History] Budesonide/Formoterol 160/4.5 [Symbicort 160/4.5] 2 puff IH BIDR 12/07/18 [History] FLUoxetine HCl [Fluoxetine HCl] 80 mg PO DAILY 12/07/18 [History] Insulin ASPART [Novolog Flexpen] 0 unit SQ TIDWM 12/07/18 [History] Isosorbide MONOnitrate [Isosorbide Mononitrate ER] 60 mg PO BID 12/07/18 [History] Lisinopril [Zestril] 40 mg PO BID 12/07/18 [History] Metformin HCl [Metformin HCl ER] 1,000 mg PO BID 12/07/18 [History] OxyCODONE/APAP 5/325 [Percocet 5/325 MG] 1 tab PO Q4-6H PRN 12/07/18 [History] Tiotropium [Spiriva] 18 mcg IH DAILY 12/07/18 [History] Allergies/Adverse Reactions: Allergy/AdvReac Type Severity Reaction Status Date / Time No Known Allergies Allergy Verified 12/07/18 08:10 - Respiratory Orders Smoking Cessation: Smoking cessation has been advised. For more information, call the [place] Tobacco Quit Line at 9-028-ZUSU-NOW. - Ancillary Orders May go on [facility] w/family/respon democrat w/meds at nurse discretion PRN - Advance Directives Code Status: Full Code - Mobility Orders Ambulate - Rehabiliation Orders Rehab Potential: Good Rehab Orders: ROM Exercises - Diet Orders No Concentrated Sweets (change chest tube dressing every other day. keep drain container below the level of the heart) CERTIFICATION: I certify that the transfer of the above named patient to an Extended Care Facility is necessary for the continuing treatment of the diagnosis listed. The above information is true and accurate reflection of patient's current condition. Confidential - Redisclosure prohibited without a patient's written consent.
--- NOTE | 2018-12-23 10:00 | Discharge Summary ---
Estimated PT Needs at Discharge: Inpatient Rehab/Swing Bed Estimated OT Needs at Discharge: None Estimated ST Needs at Discharge: None Modified Barium Swallow Dietary Recommendations: diabetic diet Date of Encounter: 12/23/18 Time of Encounter: 09:59 - Discharge Diagnosis (1) Granulomatous lung disease Priority: Primary Status: Chronic (2) Hypertension Priority: Secondary Status: Chronic Qualifiers: Hypertension type: essential hypertension Qualified Code(s): I10 - Essential (primary) hypertension (3) Diabetes mellitus, type II Priority: Secondary Status: Chronic Qualifiers: Diabetes mellitus intermediate teacher insulin use: with mcfp use Diabetes mellitus complication status: without complication Qualified Code(s): E11.9 - Type 2 diabetes mellitus without complications; Z79.4 - long-term (current) use of insulin (4) COPD (chronic obstructive pulmonary disease) Priority: Secondary Status: Chronic Qualifiers: COPD type: emphysema Emphysema type: panlobular Qualified Code(s): J43.1 - Panlobular emphysema - Hospital Course Hospital course: Mr. Boggs is a 58 year old male - Time Spent with Patient Total time spent providing and/or coordinating discharge services: - Discharge Medications Prescriptions: No Action Albuterol Neb [Proventil Neb] 2.5 mg IH Q8H PRN PRN Reason: Shortness Of Breath Albuterol Sulfate [Proair Hfa] 2 puff IH Q6H PRN PRN Reason: Shortness Of Breath Atenolol 50 mg PO BID Atorvastatin Calcium [Lipitor] 80 mg PO HS Budesonide/Formoterol 160/4.5 [Symbicort 160/4.5] 2 puff IH BIDR FLUoxetine HCl [Fluoxetine HCl] 80 mg PO DAILY Insulin ASPART [Novolog Flexpen] 0 unit SQ TIDWM Isosorbide MONOnitrate [Isosorbide Mononitrate ER] 60 mg PO BID Lisinopril [Zestril] 40 mg PO BID Metformin HCl [Metformin HCl ER] 1,000 mg PO BID OxyCODONE/APAP 5/325 [Percocet 5/325 MG] 1 tab PO Q4-6H PRN PRN Reason: Pain Tiotropium [Spiriva] 18 mcg IH DAILY Home Medications: Albuterol Neb [Proventil Neb] 2.5 mg IH Q8H PRN 12/07/18 [History] Albuterol Sulfate [Proair Hfa] 2 puff IH Q6H PRN 12/07/18 [History] Atenolol 50 mg PO BID 12/07/18 [History] Atorvastatin Calcium [Lipitor] 80 mg PO HS 12/07/18 [History] Budesonide/Formoterol 160/4.5 [Symbicort 160/4.5] 2 puff IH BIDR 12/07/18 [History] FLUoxetine HCl [Fluoxetine HCl] 80 mg PO DAILY 12/07/18 [History] Insulin ASPART [Novolog Flexpen] 0 unit SQ TIDWM 12/07/18 [History] Isosorbide MONOnitrate [Isosorbide Mononitrate ER] 60 mg PO BID 12/07/18 [History] Lisinopril [Zestril] 40 mg PO BID 12/07/18 [History] Metformin HCl [Metformin HCl ER] 1,000 mg PO BID 12/07/18 [History] OxyCODONE/APAP 5/325 [Percocet 5/325 MG] 1 tab PO Q4-6H PRN 12/07/18 [History] Tiotropium [Spiriva] 18 mcg IH DAILY 12/07/18 [History] Allergies/Adverse Reactions: Allergy/AdvReac Type Severity Reaction Status Date / Time No Known Allergies Allergy Verified 12/07/18 08:10 Date of admission: 12/07/18 11:48 Primary care physician: Ally Bermudez CNP Consults: 12/14/18 10:24 Consult to Physical Therapy [CONS] Routine Comment: Evaluate, develop and implement POC Reason for Consult: strengthening. please bring rubber bands Does patient have active BEDREST order?: No Is patient medically & hemodynamically stable?: Yes Patient assessed for mobility or mobilized this visit?: Yes 12/16/18 09:29 Consult to Speech Therapy [CONS] Routine Comment: Evaluate, develop and implement POC Reason for Consult: dysphagia Call Completed: No 12/16/18 13:34 Consult to Neurology [CONS] Routine Consulting Provider: Neurology [facility] Reason for Consult: mental status changes hx old stroke Call Completed: No Consult to Occupational Therapy [CONS] Routine Comment: Evaluate, develop and implement POC Reason for Consult: function Does patient have active BEDREST order?: No Is patient medically & hemodynamically stable?: Yes Patient assessed for mobility or mobilized this visit?: Yes 12/16/18 17:10 Consult to Interventional Radiology [CONS] Routine Consulting Provider: Radiology Interventional Cols Reason for Consult: lumbar puncture under fluoro, suspected INTERNATIONAL NURSE infection Call Completed: Yes 12/21/18 07:19 Consult to Telephone Cleaner [CONS] Routine Reason for SW Consult: d/c planning. Wishing to go to [facility] for rehab. Procedure(s) Performed: bronchoscopy, left robotic wedge resection Discharging clinician: Harshal Flood Anticipated date of discharge: 12/23/18 Physical Examination Vital Signs, Last 4 Hours Temp Pulse Resp BP Pulse Ox 12/23/18 09:30 16 94 12/23/18 07:19 98.6 F 55 18 145/80 98 General: Conversant, No Apparent Distress, Well developed, Well nourished HEENT: Atraumatic, Normocephaly, Trachea midline Neck: No JVD Cardiac: Reg Rate and Rhythm, Normal S1 and S2 Lungs: Normal Breath Sounds, Other (1 small bubble with cough ) Neuro: Alert and responsive, No focal deficits noted, Cranial nerves intact Vascular: Normal capillary refill Abdomen: Soft, Other (bm today and yesterday ) Extremities: No Clubbing, No Cyanosis, No Edema, Normal Pulses - Patient Status Disposition: Transfer Inpatient Rehab Fac Condition: Good Functional capacity at discharge: independent ambulation Overall status at discharge: patient is progressing back to baseline - Discharge Instructions Follow Up With: Ally Bermudez, WEIR FISHERMAN [Primary Care Provider] - (Pt is going to Rehab no PCP appointment needed) Harshal Flood MD [Partnered Physician] - 12/27/18 8:30 am - Diet and Activity Activity: as per physical therapy Diet: diabetic diet Additional instructions: keep the chest tube container at or below the level of the heart. change dressings every other day
[2018-12-23] MEDS: Tiotropium 18 MCG inhalation IH SCH (10:21)
[2018-12-23 11:08] VITALS: BP 135/72
[2018-12-23] MEDS: traMADol 50 MG TABLET PO PRN (13:30)
== END 2018-12-23 17:30 | DRG 164 ==
LOC: SAMDAY 07:19 → 2NNU 11:48 → 2ANU 12-17 13:40
PROVIDERS: ADMIT Thoracic Surgery (Cardiothoracic Vascular Surgery); ATTEND Thoracic Surgery (Cardiothoracic Vascular Surgery)

== ENCOUNTER 2020-02-01 09:02 | Observation (INO) ==
[2020-02-01] MEDS ORDERED: 0.9 % Sodium Chloride 1,000 ML IVC ONE (09:18)
[2020-02-01] MEDS ORDERED: cefTRIAXone 1,000 MG in Water for inj. (sterile) 10 ML IVP ONE (09:18)
[2020-02-01] MEDS ORDERED: levoFLOXacin 750 MG/150 ML 750 MG/150 ML BAG IVPB ONE (09:18)
[2020-02-01] MEDS ORDERED: Azithromycin 500 MG in 0.9 % Sodium Chloride 250 ML IVPB ONE (09:18)
[2020-02-01] MEDS ORDERED: Ipratropium/Albuterol Neb 3 ML IH ONE (09:19)
[2020-02-01] MEDS ORDERED: methylPREDNISolone 125 MG/2 ML VIAL IVP ONE (09:19)
[2020-02-01 09:53] LABS: Basophils % 0.3 %; Eosinophils # 0.2 K/mcL (0.0-0.6); Eosinophils % 1.6 %; Hematocrit 40.6 % (37.5-50.1); Hemoglobin 13.7 g/dL (12.9-16.9); Immature Granulocytes % 0.4 % (0-4); Lymphocytes # 1.6 K/mcL (0.6-4.6); Mean Corpuscular HGB Conc 33.7 g/dL (31.6-35.5); Mean Corpuscular Hemoglobin 32.9 pg (28.0-33.3); Mean Corpuscular Volume 97.4 fL (83.0-100.0); Mean Platelet Volume 9.8 fL (9.4-12.4); Monocytes % 11.1 %; Neutrophils # 6.4 K/mcL (1.6-8.9); Platelet Count 249 K/mcL (140-400); Red Blood Count 4.17 M/mcL (4.19-5.50); Red Cell Distribution Width 13.1 % (11.5-14.5); Segmented Neutrophils % 69.6 %; White Blood Count 9.2 K/mcL (4.3-11.1)
[2020-02-01 09:55] LABS: VBG HCO3 26 mEq/L (21-27); VBG PCO2 40 mmHg (41-51); VBG PH 7.41 pH Units (7.32-7.42); VBG PO2 76 mmHg (25-50)
[2020-02-01 09:56] LABS: INR 0.9; Prothrombin Time 10.4 Seconds (9.4-12.1)
[2020-02-01 09:57] LABS: Bilirubin,Urine Negative (Negative); Blood,Urine Negative (Negative); Clarity,Urine Clear (Clear); Color,Urine Light-Yellow (Yellow); Glucose,Urine (UA) 500 mg/dL (Normal); Ketones,Urine Negative (Negative); Leukocyte Esterase,Urine Negative (Negative); Mucus,Urine Few per lpf (None-Few); Nitrite,Urine Negative (Negative); Protein,Urine Negative (Neg-Trace); RBC,Urine 0-3 per hpf (0-3); Specific Gravity,Urine 1.018 (1.010-1.025); Urobilinogen,Urine Normal (Normal); WBC,Urine 0-3 per hpf (0-3)
[2020-02-01 09:58] LABS: Activated Partial Thrombo Time 25.6 Seconds (26.0-36.0)
[2020-02-01 10:26] LABS: Alanine Aminotransferase 16 Units/L (7-52); Albumin 3.8 g/dL (3.5-5.7); Albumin/Globulin Ratio 1.5 (1.1-2.2); Alkaline Phosphatase 73 Units/L (34-104); Aspartate Amino Transferase 10 Units/L (13-39); BUN/Creatinine Ratio 17 (6-26); Bilirubin,Direct 0.1 mg/dL (0.0-0.2); Bilirubin,Indirect 0.3 mg/dL (0.0-1.0); Bilirubin,Total 0.4 mg/dL (0.3-1.0); Blood Urea Nitrogen 15 mg/dL (6-20); Calcium 8.7 mg/dL (8.6-10.3); Carbon Dioxide 24 mEq/L (23-29); Chloride 104 mEq/L (98-107); Globulin 2.5 g/dL (2.4-3.5); Glucose 199 mg/dL (70-105); Magnesium 1.8 mg/dL (1.6-2.6); Osmolality,Calculated 286 (280-300); Phosphorous 3.2 mg/dL (2.7-4.5); Sodium 135 mEq/L (136-145); Total Protein 6.3 g/dL (6.4-8.9); Troponin I < 0.03 ng/mL (< 0.04); eGFR For African Americans > 60 (> 60); eGFR For Non-African Americans > 60 (> 60)
[2020-02-01] MEDS ORDERED: *HR* HYDROcodone/Acet 5/325 mg TABLET PO PRN (13:47)
[2020-02-01] MEDS ORDERED: MOM Conc 10 ML UD.LIQ PO PRN (13:47)
[2020-02-01] MEDS ORDERED: Naloxone 0.4 MG/ML INJ IVP PRN (13:47)
[2020-02-01] MEDS ORDERED: Ondansetron 4 MG/2 ML VIAL IVP PRN (13:47)
[2020-02-01] MEDS ORDERED: Mag Hydrox/Al Hydrox/Simeth 30 ML UDC PO PRN (13:47)
[2020-02-01] MEDS ORDERED: Ipratropium/Albuterol Neb 3 ML IH PRN (13:48)
[2020-02-01] MEDS ORDERED: *HR* Dextrose 50 % in Water (Vial) 50 ML VIAL IVP PRN (14:29)
[2020-02-01] MEDS ORDERED: Dextrose Gel 15 GM/37.5 ML TUBE PO PRN ×2 (14:29)
[2020-02-01] MEDS ORDERED: D5% in Water 1,000 ML IVC PRN (14:29)
[2020-02-01] MEDS: Vancomycin 1,750 MG/517.5 ML IV.SOLN IVPB SCH (15:49)
[2020-02-01] MEDS ORDERED: *HR* LORazepam 2 MG/ML VIAL IVP PRN ×2 (15:53)
[2020-02-01] MEDS: Ipratropium/Albuterol Neb 3 ML IH SCH ×2 (16:17→22:04)
[2020-02-01] MEDS: Piperacillin/Tazobactam 3.375 GM in 0.9 % Sodium Chloride Mini Bag 100 ML IVPB SCH ×2 (16:38→23:39)
[2020-02-01] MEDS: MethylPREDNISolone 40 MG/ML VIAL IVP SCH ×2 (16:39→23:39)
[2020-02-01] MEDS: Insulin LISPRO 300 UNITS/3 ML VIAL SQ SCH ×2 (16:39→20:18)
[2020-02-01] MEDS: Thiamine (B-1) 100 MG TABLET PO SCH (17:38)
[2020-02-01] MEDS: Folic Acid 1 MG TABLET PO SCH (17:39)
[2020-02-01] MEDS ORDERED: *HR* OxyCODONE/APAP 5/325 TABLET PO PRN (20:13)
[2020-02-01] MEDS ORDERED: tiZANidine 4 MG TABLET PO PRN (20:13)
[2020-02-01] MEDS: Insulin DETEMIR 100 UNIT/ML X5UNITS SQ SCH ×2 (20:31→21:09)
[2020-02-01] MEDS ORDERED: atenoloL 50 MG TABLET PO SCH (21:00)
[2020-02-01] MEDS ORDERED: Isosorbide MONOnitrate (24 HR) 60 MG TAB.ER.24H PO SCH (21:00)
[2020-02-01] MEDS: Gabapentin 300 MG CAPSULE PO SCH (21:17)
[2020-02-01] MEDS: Isosorbide MONOnitrate (24 HR) 60 MG TAB.ER.24H PO SCH (21:19)
[2020-02-01] MEDS: atenoloL 50 MG TABLET PO SCH (21:19)
[2020-02-01] MEDS: Budesonide/Formoterol 160/4.5 1 PUFF INH IH SCH (22:04)
[2020-02-02 01:41] LABS: Hematocrit 42.3 % (37.5-50.1); Hemoglobin 13.8 g/dL (12.9-16.9); Immature Granulocytes % 0.5 % (0-4); Lymphocytes # 0.5 K/mcL (0.6-4.6); Lymphocytes % 5.4 %; Mean Corpuscular HGB Conc 32.6 g/dL (31.6-35.5); Mean Corpuscular Hemoglobin 32.2 pg (28.0-33.3); Mean Corpuscular Volume 98.6 fL (83.0-100.0); Mean Platelet Volume 10.1 fL (9.4-12.4); Monocytes # 0.3 K/mcL (0.0-1.3); Monocytes % 3.3 %; Neutrophils # 8.3 K/mcL (1.6-8.9); Platelet Count 239 K/mcL (140-400); Red Blood Count 4.29 M/mcL (4.19-5.50); Red Cell Distribution Width 13.1 % (11.5-14.5); Segmented Neutrophils % 90.8 %; White Blood Count 9.1 K/mcL (4.3-11.1)
[2020-02-02] MEDS: Vancomycin 1,750 MG/517.5 ML IV.SOLN IVPB SCH ×2 (01:51→14:54)
[2020-02-02 02:02] LABS: BUN/Creatinine Ratio 21 (6-26); Blood Urea Nitrogen 19 mg/dL (6-20); Calcium 8.5 mg/dL (8.6-10.3); Carbon Dioxide 23 mEq/L (23-29); Chloride 100 mEq/L (98-107); Glucose 424 mg/dL (70-105); Magnesium 2.1 mg/dL (1.6-2.6); Osmolality,Calculated 296 (280-300); Phosphorous 3.6 mg/dL (2.7-4.5); Potassium 4.7 mEq/L (3.5-5.1); Sodium 133 mEq/L (136-145); eGFR For African Americans > 60 (> 60); eGFR For Non-African Americans > 60 (> 60)
[2020-02-02] MEDS: Ipratropium/Albuterol Neb 3 ML IH SCH ×4 (03:42→22:39)
[2020-02-02] MEDS: MethylPREDNISolone 40 MG/ML VIAL IVP SCH ×2 (08:11→14:53)
[2020-02-02] MEDS: FLUoxetine 20 MG CAPSULE PO SCH (08:12)
[2020-02-02] MEDS: atenoloL 50 MG TABLET PO SCH ×2 (08:13→20:00)
[2020-02-02] MEDS: Folic Acid 1 MG TABLET PO SCH (08:13)
[2020-02-02] MEDS: Thiamine (B-1) 100 MG TABLET PO SCH (08:13)
[2020-02-02] MEDS: Isosorbide MONOnitrate (24 HR) 60 MG TAB.ER.24H PO SCH ×2 (08:14→20:00)
[2020-02-02] MEDS: Piperacillin/Tazobactam 3.375 GM in 0.9 % Sodium Chloride Mini Bag 100 ML IVPB SCH ×3 (08:15→23:54)
[2020-02-02] MEDS: Insulin LISPRO 300 UNITS/3 ML VIAL SQ SCH ×5 (08:17→19:43)
[2020-02-02] MEDS: *HR* LORazepam 2 MG/ML VIAL IVP PRN ×3 (08:17→19:59)
[2020-02-02] MEDS: Gabapentin 300 MG CAPSULE PO SCH ×2 (08:18→20:00)
[2020-02-02] MEDS ORDERED: NON-FORMULARY MEDICATION 1 EACH EACH (Fluticasone/Umeclidin/Vilanter [Trelegy Ellipta 100- IH SCH (09:00)
[2020-02-02] MEDS: Budesonide/Formoterol 160/4.5 1 PUFF INH IH SCH ×2 (10:01→22:40)
[2020-02-02] MEDS ORDERED: Nicotine 21 MG PATCH.TD24 TD SCH (17:30)
[2020-02-02] MEDS: Insulin DETEMIR 100 UNIT/ML X5UNITS SQ SCH (19:49)
[2020-02-02] MEDS: Acetaminophen 325 MG TABLET PO PRN (20:00)
[2020-02-03] MEDS ORDERED: Vancomycin 2,000 MG/520 ML IV.SOLN IVPB SCH (03:00)
[2020-02-03] MEDS: Ipratropium/Albuterol Neb 3 ML IH SCH ×2 (04:14→09:41)
[2020-02-03 06:25] VITALS: BP 190/94
[2020-02-03] MEDS: Acetaminophen 325 MG TABLET PO PRN (06:50)
[2020-02-03] MEDS: Insulin LISPRO 300 UNITS/3 ML VIAL SQ SCH ×2 (07:52)
[2020-02-03] MEDS: Piperacillin/Tazobactam 3.375 GM in 0.9 % Sodium Chloride Mini Bag 100 ML IVPB SCH (07:53)
[2020-02-03] MEDS: FLUoxetine 20 MG CAPSULE PO SCH (07:53)
[2020-02-03] MEDS: Thiamine (B-1) 100 MG TABLET PO SCH (07:53)
[2020-02-03] MEDS: atenoloL 50 MG TABLET PO SCH (07:54)
[2020-02-03] MEDS: Isosorbide MONOnitrate (24 HR) 60 MG TAB.ER.24H PO SCH (07:54)
[2020-02-03] MEDS: Gabapentin 300 MG CAPSULE PO SCH (07:54)
[2020-02-03] MEDS: Folic Acid 1 MG TABLET PO SCH (07:55)
[2020-02-03] MEDS: Vancomycin 1,750 MG/517.5 ML IV.SOLN IVPB SCH (08:18)
[2020-02-03] MEDS ORDERED: Ibuprofen 800 MG TABLET PO ONE (08:23)
[2020-02-03] MEDS ORDERED: predniSONE 20 MG TABLET PO SCH ×2 (09:00)
[2020-02-03] MEDS: Budesonide/Formoterol 160/4.5 1 PUFF INH IH SCH (09:41)
== END 2020-02-03 11:53 | disposition home or self-care (01) ==
LOC: 3BNU 09:02 → EMEROOARM 09:02 → 3BNU 14:51
PROVIDERS: ADMIT Internal Medicine; ATTEND Internal Medicine

== ENCOUNTER 2020-08-26 10:21 | Inpatient (IN) ==
[2020-08-26] MEDS ORDERED: Piperacillin/Tazobactam 3.375 GM in 0.9 % Sodium Chloride Mini Bag 100 ML IVPB ONE (12:05)
[2020-08-26 12:11] LABS: Basophils # 0.1 K/mcL (0.0-0.2); Basophils % 0.7 %; Eosinophils # 0.1 K/mcL (0.0-0.6); Eosinophils % 1.6 %; Hematocrit 41.1 % (37.5-50.1); Hemoglobin 13.5 g/dL (12.9-16.9); Immature Granulocytes % 0.3 % (0-4); Lymphocytes # 1.7 K/mcL (0.6-4.6); Lymphocytes % 19.3 %; Mean Corpuscular HGB Conc 32.8 g/dL (31.6-35.5); Mean Corpuscular Hemoglobin 32.2 pg (28.0-33.3); Mean Corpuscular Volume 98.1 fL (83.0-100.0); Monocytes # 1.1 K/mcL (0.0-1.3); Neutrophils # 5.9 K/mcL (1.6-8.9); Platelet Count 288 K/mcL (140-400); Red Blood Count 4.19 M/mcL (4.19-5.50); Red Cell Distribution Width 14.7 % (11.5-14.5); Segmented Neutrophils % 66.1 %
[2020-08-26 12:36] LABS: BUN/Creatinine Ratio 11 (6-26); Blood Urea Nitrogen 9 mg/dL (6-20); C-Reactive Protein 25 mg/L (Less than 10); Calcium 9.4 mg/dL (8.6-10.3); Carbon Dioxide 22 mEq/L (23-29); Chloride 104 mEq/L (98-107); Glucose 190 mg/dL (70-105); Osmolality,Calculated 286 (280-300); Potassium 4.7 mEq/L (3.5-5.1); Sodium 136 mEq/L (136-145); eGFR For African Americans > 60 (> 60); eGFR For Non-African Americans > 60 (> 60)
[2020-08-26] MEDS ORDERED: D5% in Water 1,000 ML IVC PRN (13:36)
[2020-08-26] MEDS ORDERED: Dextrose Gel 15 GM/37.5 ML TUBE PO PRN ×2 (13:36)
[2020-08-26] MEDS ORDERED: Acetaminophen 325 MG TABLET PO PRN (13:36)
[2020-08-26] MEDS ORDERED: Ondansetron ODT 4 MG TAB.RAPDIS SL PRN (13:36)
[2020-08-26] MEDS ORDERED: *HR* Dextrose 50 % in Water (Vial) 50 ML VIAL IVP PRN (13:36)
[2020-08-26] MEDS ORDERED: Naloxone 0.4 MG/ML INJ IVP PRN (13:36)
[2020-08-26] MEDS ORDERED: Mag Hydrox/Al Hydrox/Simeth 30 ML UDC PO PRN (13:36)
[2020-08-26] MEDS ORDERED: MOM Conc 10 ML UD.LIQ PO PRN (13:36)
[2020-08-26] MEDS ORDERED: Ipratropium/Albuterol Neb 3 ML IH PRN (13:43)
[2020-08-26] MEDS ORDERED: tiZANidine 4 MG TABLET PO PRN (13:43)
[2020-08-26] MEDS: Insulin LISPRO 300 UNITS/3 ML VIAL SUBQ SCH (16:29)
[2020-08-26] MEDS ORDERED: *HR* LORazepam 2 MG/ML VIAL IVP PRN ×3 (16:53)
[2020-08-26] MEDS: Insulin NPH/REG 70/30 100 UNIT/ML (x5UNIT) SUBQ SCH (16:58)
[2020-08-26] MEDS: Thiamine (B-1) 100 MG TABLET PO SCH (17:21)
[2020-08-26] MEDS: Folic Acid 1 MG TABLET PO SCH (17:21)
[2020-08-26 17:34] LABS: Influenza A PCR Negative (Negative); Influenza B PCR Negative (Negative); Resp. Syncytial Virus PCR Negative (Negative)
[2020-08-26 17:53] LABS: SARS-CoV-2 by PCR (In House) Negative (Negative)
[2020-08-26] MEDS: Gabapentin 300 MG CAPSULE PO SCH (20:45)
[2020-08-26] MEDS: atenoloL 50 MG TABLET PO SCH (20:45)
[2020-08-26] MEDS: Piperacillin/Tazobactam 3.375 GM in 0.9 % Sodium Chloride Mini Bag 100 ML IVPB SCH (20:45)
[2020-08-26] MEDS: Isosorbide MONOnitrate (24 HR) 60 MG TAB.ER.24H PO SCH (20:45)
[2020-08-26] MEDS ORDERED: Insulin LISPRO 300 UNITS/3 ML VIAL SUBQ SCH (21:00)
[2020-08-26] MEDS ORDERED: Melatonin 3 MG TABLET PO SCH (21:00)
[2020-08-26] MEDS: Budesonide/Formoterol 160/4.5 1 PUFF INH IH SCH (22:39)
[2020-08-27] MEDS: Vancomycin 1,500 MG/265 ML IV.SOLN IVPB SCH ×2 (01:30→11:33)
[2020-08-27 04:26] LABS: Hematocrit 38.4 % (37.5-50.1); Hemoglobin 12.5 g/dL (12.9-16.9); Mean Corpuscular HGB Conc 32.6 g/dL (31.6-35.5); Mean Corpuscular Hemoglobin 32.1 pg (28.0-33.3); Mean Corpuscular Volume 98.5 fL (83.0-100.0); Platelet Count 253 K/mcL (140-400); Red Cell Distribution Width 14.6 % (11.5-14.5); White Blood Count 7.5 K/mcL (4.3-11.1)
[2020-08-27 04:49] LABS: BUN/Creatinine Ratio 12 (6-26); Blood Urea Nitrogen 10 mg/dL (6-20); Calcium 8.7 mg/dL (8.6-10.3); Carbon Dioxide 24 mEq/L (23-29); Chloride 103 mEq/L (98-107); Glucose 171 mg/dL (70-105); Magnesium 1.7 mg/dL (1.6-2.6); Osmolality,Calculated 283 (280-300); Sodium 135 mEq/L (136-145); eGFR For African Americans > 60 (> 60); eGFR For Non-African Americans > 60 (> 60)
[2020-08-27] MEDS: Piperacillin/Tazobactam 3.375 GM in 0.9 % Sodium Chloride Mini Bag 100 ML IVPB SCH ×3 (04:55→21:30)
[2020-08-27] MEDS: Insulin NPH/REG 70/30 100 UNIT/ML (x5UNIT) SUBQ SCH ×2 (07:37→17:19)
[2020-08-27] MEDS: Insulin LISPRO 300 UNITS/3 ML VIAL SUBQ SCH ×3 (07:37→17:17)
[2020-08-27] MEDS: Gabapentin 300 MG CAPSULE PO SCH (07:39)
[2020-08-27] MEDS: Isosorbide MONOnitrate (24 HR) 60 MG TAB.ER.24H PO SCH (07:40)
[2020-08-27] MEDS: Folic Acid 1 MG TABLET PO SCH (07:40)
[2020-08-27] MEDS: atenoloL 50 MG TABLET PO SCH (07:40)
[2020-08-27] MEDS: Thiamine (B-1) 100 MG TABLET PO SCH (07:40)
[2020-08-27] MEDS ORDERED: FLUoxetine 20 MG CAPSULE PO SCH (09:00)
[2020-08-27] MEDS ORDERED: Tiotropium 10 INH DOSE IH SCH (10:00)
[2020-08-27] MEDS: Budesonide/Formoterol 160/4.5 1 PUFF INH IH SCH ×2 (10:58→22:58)
[2020-08-27] MEDS ORDERED: Lidocaine -MPF 2% 2 ML VIAL ONE (13:23)
[2020-08-27] MEDS ORDERED: *HR* FentaNYL (PF) 100 MCG/2 ML VIAL ONE (13:27)
[2020-08-27] MEDS ORDERED: *HR* Dextrose 50 % in Water (Vial) 50 ML VIAL IVP PRN (15:01)
[2020-08-27] MEDS ORDERED: Ondansetron ODT 4 MG TAB.RAPDIS SL PRN (15:01)
[2020-08-27] MEDS ORDERED: tiZANidine 4 MG TABLET PO PRN (15:01)
[2020-08-27] MEDS ORDERED: Ipratropium/Albuterol Neb 3 ML IH PRN (15:01)
[2020-08-27] MEDS ORDERED: D5% in Water 1,000 ML IVC PRN (15:01)
[2020-08-27] MEDS ORDERED: Dextrose Gel 15 GM/37.5 ML TUBE PO PRN ×2 (15:01)
[2020-08-27] MEDS ORDERED: MOM Conc 10 ML UD.LIQ PO PRN (15:01)
[2020-08-27] MEDS ORDERED: Naloxone 0.4 MG/ML INJ IVP PRN (15:01)
[2020-08-27] MEDS ORDERED: Mag Hydrox/Al Hydrox/Simeth 30 ML UDC PO PRN (15:01)
[2020-08-27] MEDS ORDERED: *HR* LORazepam 2 MG/ML VIAL IVP PRN ×2 (15:01)
[2020-08-27] MEDS: *HR* LORazepam 2 MG/ML VIAL IVP PRN ×2 (15:55→18:23)
[2020-08-27] MEDS: Ipratropium/Albuterol Neb 3 ML IH SCH ×3 (18:14→23:09)
[2020-08-27] MEDS ORDERED: Piperacillin/Tazobactam 3.375 GM in 0.9 % Sodium Chloride Mini Bag 100 ML IVPB SCH (18:30)
[2020-08-27] MEDS: Dexmedetomidine HCl 400 MCG/100 ML MLS IVC SCH (21:29)
[2020-08-27] MEDS ORDERED: Acetaminophen IV 1,000 MG/100 ML BAG IVPB ONE (21:54)
[2020-08-28] MEDS: Insulin LISPRO 300 UNITS/3 ML VIAL SUBQ SCH ×5 (00:08→20:39)
[2020-08-28] MEDS: Gabapentin 300 MG CAPSULE PO SCH ×3 (00:08→20:40)
[2020-08-28] MEDS: Melatonin 3 MG TABLET PO SCH ×2 (00:08→20:40)
[2020-08-28] MEDS: Isosorbide MONOnitrate (24 HR) 60 MG TAB.ER.24H PO SCH ×2 (00:08→09:13)
[2020-08-28] MEDS: atenoloL 50 MG TABLET PO SCH ×2 (00:09→09:13)
[2020-08-28] MEDS: Vancomycin 1,500 MG/265 ML IV.SOLN IVPB SCH ×2 (01:11→12:33)
[2020-08-28] MEDS: Ipratropium/Albuterol Neb 3 ML IH SCH ×6 (03:49→22:48)
[2020-08-28] MEDS: Dexmedetomidine HCl 400 MCG/100 ML MLS IVC SCH (04:17)
[2020-08-28] MEDS: Piperacillin/Tazobactam 3.375 GM in 0.9 % Sodium Chloride Mini Bag 100 ML IVPB SCH ×3 (04:18→20:40)
[2020-08-28 06:53] LABS: Hematocrit 41.9 % (37.5-50.1); Hemoglobin 13.5 g/dL (12.9-16.9); Mean Corpuscular HGB Conc 32.2 g/dL (31.6-35.5); Mean Corpuscular Hemoglobin 33.2 pg (28.0-33.3); Mean Corpuscular Volume 102.9 fL (83.0-100.0); Mean Platelet Volume 9.5 fL (9.4-12.4); Platelet Count 237 K/mcL (140-400); Red Blood Count 4.07 M/mcL (4.19-5.50); Red Cell Distribution Width 14.3 % (11.5-14.5)
[2020-08-28] MEDS: Budesonide/Formoterol 160/4.5 1 PUFF INH IH SCH ×2 (07:34→20:02)
[2020-08-28] MEDS: Tiotropium 10 INH DOSE IH SCH (07:35)
[2020-08-28] MEDS: FLUoxetine 20 MG CAPSULE PO SCH (09:12)
[2020-08-28] MEDS: Thiamine (B-1) 100 MG TABLET PO SCH (09:12)
[2020-08-28] MEDS: Insulin NPH/REG 70/30 100 UNIT/ML (x5UNIT) SUBQ SCH ×2 (09:13→20:00)
[2020-08-28] MEDS: Folic Acid 1 MG TABLET PO SCH (09:13)
[2020-08-28] MEDS ORDERED: *HR* Enoxaparin 30 MG/0.3 ML SYRINGE SQ SCH (11:45)
[2020-08-28] MEDS: *HR* LORazepam 2 MG/ML VIAL IVP PRN ×2 (15:26→20:40)
[2020-08-29] MEDS: Ipratropium/Albuterol Neb 3 ML IH SCH ×6 (03:57→23:04)
[2020-08-29] MEDS: Piperacillin/Tazobactam 3.375 GM in 0.9 % Sodium Chloride Mini Bag 100 ML IVPB SCH ×3 (05:33→20:39)
[2020-08-29] MEDS: *HR* Enoxaparin 40 MG/0.4 ML SYRINGE SQ SCH (05:34)
[2020-08-29] MEDS: Budesonide/Formoterol 160/4.5 1 PUFF INH IH SCH ×2 (07:35→19:47)
[2020-08-29] MEDS: Tiotropium 10 INH DOSE IH SCH (07:35)
[2020-08-29] MEDS: Thiamine (B-1) 100 MG TABLET PO SCH (08:54)
[2020-08-29] MEDS: Gabapentin 300 MG CAPSULE PO SCH ×2 (08:54→20:40)
[2020-08-29] MEDS: Folic Acid 1 MG TABLET PO SCH (08:57)
[2020-08-29] MEDS: Isosorbide MONOnitrate (24 HR) 60 MG TAB.ER.24H PO SCH (08:58)
[2020-08-29] MEDS: FLUoxetine 20 MG CAPSULE PO SCH (08:58)
[2020-08-29] MEDS: Insulin NPH/REG 70/30 100 UNIT/ML (x5UNIT) SUBQ SCH ×2 (08:59→16:42)
[2020-08-29] MEDS ORDERED: atenoloL 50 MG TABLET PO SCH (09:00)
[2020-08-29] MEDS: Insulin LISPRO 300 UNITS/3 ML VIAL SUBQ SCH ×4 (09:01→20:29)
[2020-08-29] MEDS: atenoloL 50 MG TABLET PO SCH (10:37)
[2020-08-29] MEDS: *HR* LORazepam 2 MG/ML VIAL IVP PRN (10:44)
[2020-08-29] MEDS: Acetaminophen 325 MG TABLET PO PRN (16:21)
[2020-08-29] MEDS: Melatonin 3 MG TABLET PO SCH (20:40)
[2020-08-30] MEDS: Ipratropium/Albuterol Neb 3 ML IH SCH ×6 (03:18→23:11)
[2020-08-30] MEDS: *HR* Enoxaparin 40 MG/0.4 ML SYRINGE SQ SCH (05:59)
[2020-08-30] MEDS: Piperacillin/Tazobactam 3.375 GM in 0.9 % Sodium Chloride Mini Bag 100 ML IVPB SCH (05:59)
[2020-08-30] MEDS: Budesonide/Formoterol 160/4.5 1 PUFF INH IH SCH ×2 (07:12→19:24)
[2020-08-30] MEDS: Tiotropium 10 INH DOSE IH SCH (07:14)
[2020-08-30] MEDS: Gabapentin 300 MG CAPSULE PO SCH ×2 (07:48→20:07)
[2020-08-30] MEDS: Isosorbide MONOnitrate (24 HR) 60 MG TAB.ER.24H PO SCH (07:48)
[2020-08-30] MEDS: Folic Acid 1 MG TABLET PO SCH (07:48)
[2020-08-30] MEDS: Thiamine (B-1) 100 MG TABLET PO SCH (07:48)
[2020-08-30] MEDS: FLUoxetine 20 MG CAPSULE PO SCH (07:48)
[2020-08-30] MEDS: atenoloL 50 MG TABLET PO SCH (07:48)
[2020-08-30] MEDS: Insulin NPH/REG 70/30 100 UNIT/ML (x5UNIT) SUBQ SCH ×2 (07:49→16:19)
[2020-08-30] MEDS: Insulin LISPRO 300 UNITS/3 ML VIAL SUBQ SCH ×4 (07:49→20:01)
[2020-08-30] MEDS: *HR* LORazepam 2 MG/ML VIAL IVP PRN (12:06)
[2020-08-30] MEDS: Acetaminophen 325 MG TABLET PO PRN ×2 (12:07→20:07)
[2020-08-30] MEDS: Sulfamethoxazole/Trimeth DS 1 EACH TABLET PO SCH (20:07)
[2020-08-30] MEDS: Melatonin 3 MG TABLET PO SCH (20:07)
[2020-08-31] MEDS: Ipratropium/Albuterol Neb 3 ML IH SCH ×6 (03:25→23:32)
[2020-08-31] MEDS: *HR* Enoxaparin 40 MG/0.4 ML SYRINGE SQ SCH (04:34)
[2020-08-31] MEDS: Tiotropium 10 INH DOSE IH SCH (07:24)
[2020-08-31] MEDS: Budesonide/Formoterol 160/4.5 1 PUFF INH IH SCH ×2 (07:24→19:31)
[2020-08-31] MEDS: Thiamine (B-1) 100 MG TABLET PO SCH (07:45)
[2020-08-31] MEDS: Sulfamethoxazole/Trimeth DS 1 EACH TABLET PO SCH ×2 (07:45→20:37)
[2020-08-31] MEDS: FLUoxetine 20 MG CAPSULE PO SCH (07:45)
[2020-08-31] MEDS: Insulin NPH/REG 70/30 100 UNIT/ML (x5UNIT) SUBQ SCH ×2 (07:46→17:01)
[2020-08-31] MEDS: Isosorbide MONOnitrate (24 HR) 60 MG TAB.ER.24H PO SCH (07:46)
[2020-08-31] MEDS: Gabapentin 300 MG CAPSULE PO SCH ×2 (07:46→20:37)
[2020-08-31] MEDS: Folic Acid 1 MG TABLET PO SCH (07:46)
[2020-08-31] MEDS: atenoloL 50 MG TABLET PO SCH (07:46)
[2020-08-31] MEDS: Insulin LISPRO 300 UNITS/3 ML VIAL SUBQ SCH ×4 (07:47→20:18)
[2020-08-31] MEDS: *HR* LORazepam 2 MG/ML VIAL IVP PRN ×2 (12:41→17:01)
[2020-08-31] MEDS: Melatonin 3 MG TABLET PO SCH (20:37)
[2020-09-01] MEDS: Ipratropium/Albuterol Neb 3 ML IH SCH ×6 (03:44→23:59)
[2020-09-01] MEDS: *HR* Enoxaparin 40 MG/0.4 ML SYRINGE SQ SCH (04:23)
[2020-09-01] MEDS: Budesonide/Formoterol 160/4.5 1 PUFF INH IH SCH ×2 (07:31→19:48)
[2020-09-01] MEDS: Insulin LISPRO 300 UNITS/3 ML VIAL SUBQ SCH ×4 (07:53→20:35)
[2020-09-01] MEDS: Insulin NPH/REG 70/30 100 UNIT/ML (x5UNIT) SUBQ SCH ×2 (08:05→17:19)
[2020-09-01] MEDS: Tiotropium 10 INH DOSE IH SCH (09:14)
[2020-09-01] MEDS: FLUoxetine 20 MG CAPSULE PO SCH (09:38)
[2020-09-01] MEDS: Folic Acid 1 MG TABLET PO SCH (09:38)
[2020-09-01] MEDS: Thiamine (B-1) 100 MG TABLET PO SCH (09:39)
[2020-09-01] MEDS: Isosorbide MONOnitrate (24 HR) 60 MG TAB.ER.24H PO SCH (09:39)
[2020-09-01] MEDS: Sulfamethoxazole/Trimeth DS 1 EACH TABLET PO SCH ×2 (09:39→20:40)
[2020-09-01] MEDS: Gabapentin 300 MG CAPSULE PO SCH ×2 (09:39→20:39)
[2020-09-01] MEDS: atenoloL 50 MG TABLET PO SCH (09:39)
[2020-09-01] MEDS: Melatonin 3 MG TABLET PO SCH (20:37)
[2020-09-02] MEDS: Ipratropium/Albuterol Neb 3 ML IH SCH ×6 (03:46→23:38)
[2020-09-02] MEDS: *HR* Enoxaparin 40 MG/0.4 ML SYRINGE SQ SCH (05:23)
[2020-09-02] MEDS: Budesonide/Formoterol 160/4.5 1 PUFF INH IH SCH ×2 (07:51→19:30)
[2020-09-02] MEDS: Tiotropium 10 INH DOSE IH SCH (07:53)
[2020-09-02] MEDS: FLUoxetine 20 MG CAPSULE PO SCH (08:15)
[2020-09-02] MEDS: Isosorbide MONOnitrate (24 HR) 60 MG TAB.ER.24H PO SCH (08:17)
[2020-09-02] MEDS: Folic Acid 1 MG TABLET PO SCH (08:17)
[2020-09-02] MEDS: Thiamine (B-1) 100 MG TABLET PO SCH (08:17)
[2020-09-02] MEDS: Sulfamethoxazole/Trimeth DS 1 EACH TABLET PO SCH ×2 (08:18→20:08)
[2020-09-02] MEDS: atenoloL 50 MG TABLET PO SCH (08:18)
[2020-09-02] MEDS: Gabapentin 300 MG CAPSULE PO SCH ×2 (08:18→20:09)
[2020-09-02] MEDS: Insulin NPH/REG 70/30 100 UNIT/ML (x5UNIT) SUBQ SCH ×2 (08:20→16:37)
[2020-09-02] MEDS: Insulin LISPRO 300 UNITS/3 ML VIAL SUBQ SCH ×4 (08:21→20:10)
[2020-09-02] MEDS: Melatonin 3 MG TABLET PO SCH ×2 (20:09→21:59)
[2020-09-03] MEDS: Ipratropium/Albuterol Neb 3 ML IH SCH ×6 (03:41→23:04)
[2020-09-03] MEDS: *HR* Enoxaparin 40 MG/0.4 ML SYRINGE SQ SCH (05:10)
[2020-09-03] MEDS: Budesonide/Formoterol 160/4.5 1 PUFF INH IH SCH ×2 (07:36→19:52)
[2020-09-03] MEDS: Tiotropium 10 INH DOSE IH SCH (07:37)
[2020-09-03] MEDS: atenoloL 50 MG TABLET PO SCH (08:16)
[2020-09-03] MEDS: Sulfamethoxazole/Trimeth DS 1 EACH TABLET PO SCH ×2 (08:17→20:14)
[2020-09-03] MEDS: Thiamine (B-1) 100 MG TABLET PO SCH (08:17)
[2020-09-03] MEDS: Gabapentin 300 MG CAPSULE PO SCH ×2 (08:17→20:14)
[2020-09-03] MEDS: FLUoxetine 20 MG CAPSULE PO SCH (08:17)
[2020-09-03] MEDS: Isosorbide MONOnitrate (24 HR) 60 MG TAB.ER.24H PO SCH (08:17)
[2020-09-03] MEDS: Folic Acid 1 MG TABLET PO SCH (08:17)
[2020-09-03] MEDS: Insulin NPH/REG 70/30 100 UNIT/ML (x5UNIT) SUBQ SCH ×2 (08:18→16:27)
[2020-09-03] MEDS: Insulin LISPRO 300 UNITS/3 ML VIAL SUBQ SCH ×4 (10:40→21:59)
[2020-09-03] MEDS: Ammonium Lactate 30 APPL/225 GM BOTTLE TP SCH ×2 (10:50→20:21)
[2020-09-03] MEDS: Melatonin 3 MG TABLET PO SCH (20:13)
[2020-09-04] MEDS: Ipratropium/Albuterol Neb 3 ML IH SCH ×5 (03:59→19:57)
[2020-09-04] MEDS: *HR* Enoxaparin 40 MG/0.4 ML SYRINGE SQ SCH (06:18)
[2020-09-04] MEDS: Budesonide/Formoterol 160/4.5 1 PUFF INH IH SCH ×2 (07:37→19:59)
[2020-09-04] MEDS: Insulin LISPRO 300 UNITS/3 ML VIAL SUBQ SCH ×4 (07:38→22:50)
[2020-09-04] MEDS: Sulfamethoxazole/Trimeth DS 1 EACH TABLET PO SCH ×2 (08:35→22:50)
[2020-09-04] MEDS: FLUoxetine 20 MG CAPSULE PO SCH (08:35)
[2020-09-04] MEDS: atenoloL 50 MG TABLET PO SCH (08:36)
[2020-09-04] MEDS: Insulin NPH/REG 70/30 100 UNIT/ML (x5UNIT) SUBQ SCH ×2 (08:36→16:43)
[2020-09-04] MEDS: Isosorbide MONOnitrate (24 HR) 60 MG TAB.ER.24H PO SCH (08:36)
[2020-09-04] MEDS: Thiamine (B-1) 100 MG TABLET PO SCH (08:36)
[2020-09-04] MEDS: Folic Acid 1 MG TABLET PO SCH (08:36)
[2020-09-04] MEDS: Gabapentin 300 MG CAPSULE PO SCH ×2 (08:36→22:49)
[2020-09-04] MEDS: Ammonium Lactate 30 APPL/225 GM BOTTLE TP SCH ×2 (08:49→22:51)
[2020-09-04] MEDS: Tiotropium 10 INH DOSE IH SCH (10:17)
[2020-09-04] MEDS: Melatonin 3 MG TABLET PO SCH (22:49)
[2020-09-05] MEDS: Ipratropium/Albuterol Neb 3 ML IH SCH ×6 (00:37→20:02)
[2020-09-05] MEDS: *HR* Enoxaparin 40 MG/0.4 ML SYRINGE SQ SCH (05:22)
[2020-09-05] MEDS: Budesonide/Formoterol 160/4.5 1 PUFF INH IH SCH ×2 (07:29→20:00)
[2020-09-05] MEDS: Insulin LISPRO 300 UNITS/3 ML VIAL SUBQ SCH ×4 (08:04→19:58)
[2020-09-05] MEDS: Insulin NPH/REG 70/30 100 UNIT/ML (x5UNIT) SUBQ SCH ×2 (08:35→17:17)
[2020-09-05] MEDS: Tiotropium 10 INH DOSE IH SCH (10:03)
[2020-09-05] MEDS: Folic Acid 1 MG TABLET PO SCH (10:26)
[2020-09-05] MEDS: Sulfamethoxazole/Trimeth DS 1 EACH TABLET PO SCH ×2 (10:26→19:56)
[2020-09-05] MEDS: Thiamine (B-1) 100 MG TABLET PO SCH (10:26)
[2020-09-05] MEDS: Isosorbide MONOnitrate (24 HR) 60 MG TAB.ER.24H PO SCH (10:26)
[2020-09-05] MEDS: Gabapentin 300 MG CAPSULE PO SCH ×2 (10:27→19:56)
[2020-09-05] MEDS: FLUoxetine 20 MG CAPSULE PO SCH (10:27)
[2020-09-05] MEDS: atenoloL 50 MG TABLET PO SCH (10:27)
[2020-09-05] MEDS: Ammonium Lactate 30 APPL/225 GM BOTTLE TP SCH (14:57)
[2020-09-05 19:22] LABS: Adenovirus Not Detected (Not Detect); Bordetella Pertussis Not Detected (Not Detect); Chlamydophila pneumoniae Not Detected (Not Detect); Coronavirus 229E Not Detected (Not Detect); Coronavirus HKU1 Not Detected (Not Detect); Coronavirus NL63 Not Detected (Not Detect); Coronavirus OC43 Not Detected (Not Detect); Human Metapneumovirus Not Detected (Not Detect); Human Rhinovirus/Enterovirus Not Detected (Not Detect); Influenza A Subtype 2009 H1 Not Detected (Not Detect); Influenza B Not Detected (Not Detect); Mycoplasma pneumoniae Not Detected (Not Detect); Parainfluenza Virus 1 Not Detected (Not Detect); Parainfluenza Virus 2 Not Detected (Not Detect); Parainfluenza Virus 3 Not Detected (Not Detect); Parainfluenza Virus 4 Not Detected (Not Detect); Respiratory Syncytial Virus Not Detected (Not Detect); SARS-CoV-2 Not Detected (Not Detect)
[2020-09-05 19:50] VITALS: BP 147/87
[2020-09-05] MEDS: Melatonin 3 MG TABLET PO SCH (19:55)
== END 2020-09-05 20:45 | disposition other institution (70) | DRG 623 ==
LOC: 3NENU 10:21 → EMEROOARM 10:21 → SUATTDRO 15:19 → 3NENU 15:55 → 2NENU 08-27 20:46 → SUATTDRO 08-30 14:04
PROVIDERS: ADMIT Internal Medicine; ATTEND Internal Medicine

== ENCOUNTER 2020-11-13 11:07 | Observation (INO) ==
[2020-11-13] MEDS ORDERED: Ipratropium/Albuterol Neb 3 ML IH ONE (11:45)
[2020-11-13 12:01] LABS: Basophils % 0.3 %; Eosinophils # 0.3 K/mcL (0.0-0.6); Eosinophils % 3.3 %; Hematocrit 37.9 % (37.5-50.1); Immature Granulocytes % 0.3 % (0-4); Lymphocytes % 21.7 %; Mean Corpuscular HGB Conc 34.3 g/dL (31.6-35.5); Mean Corpuscular Hemoglobin 30.9 pg (28.0-33.3); Mean Platelet Volume 9.8 fL (9.4-12.4); Monocytes # 1.2 K/mcL (0.0-1.3); Monocytes % 13.2 %; Neutrophils # 5.7 K/mcL (1.6-8.9); Platelet Count 316 K/mcL (140-400); Red Blood Count 4.21 M/mcL (4.19-5.50); Red Cell Distribution Width 13.6 % (11.5-14.5); Segmented Neutrophils % 61.2 %; White Blood Count 9.3 K/mcL (4.3-11.1)
[2020-11-13 12:23] LABS: Alanine Aminotransferase 7 Units/L (7-52); Albumin 3.7 g/dL (3.5-5.7); Albumin/Globulin Ratio 1.4 (1.1-2.2); Alkaline Phosphatase 55 Units/L (34-104); Aspartate Amino Transferase 7 Units/L (13-39); BUN/Creatinine Ratio 20 (6-26); Bilirubin,Indirect 0.5 mg/dL (0.0-1.0); Bilirubin,Total 0.5 mg/dL (0.3-1.0); Blood Urea Nitrogen 15 mg/dL (6-20); Calcium 8.9 mg/dL (8.6-10.3); Carbon Dioxide 23 mEq/L (23-29); Chloride 106 mEq/L (98-107); Globulin 2.7 g/dL (2.4-3.5); Glucose 127 mg/dL (70-105); Osmolality,Calculated 284 (280-300); Sodium 136 mEq/L (136-145); Total Protein 6.4 g/dL (6.4-8.9); Troponin I < 0.03 ng/mL (< 0.04); eGFR For African Americans > 60 (> 60); eGFR For Non-African Americans > 60 (> 60)
[2020-11-13] MEDS ORDERED: Azithromycin 250 MG TABLET PO ONE (14:54)
[2020-11-13 15:08] LABS: Adenovirus Not Detected (Not Detect); Bordetella Pertussis Not Detected (Not Detect); Chlamydophila pneumoniae Not Detected (Not Detect); Coronavirus 229E Not Detected (Not Detect); Coronavirus HKU1 Not Detected (Not Detect); Coronavirus NL63 Not Detected (Not Detect); Coronavirus OC43 Not Detected (Not Detect); Human Metapneumovirus Not Detected (Not Detect); Human Rhinovirus/Enterovirus DETECTED (Not Detect); Influenza A Subtype 2009 H1 Not Detected (Not Detect); Influenza B Not Detected (Not Detect); Mycoplasma pneumoniae Not Detected (Not Detect); Parainfluenza Virus 1 Not Detected (Not Detect); Parainfluenza Virus 2 Not Detected (Not Detect); Parainfluenza Virus 3 Not Detected (Not Detect); Parainfluenza Virus 4 Not Detected (Not Detect); Respiratory Syncytial Virus Not Detected (Not Detect); SARS-CoV-2 Not Detected (Not Detect)
[2020-11-13] MEDS: Ipratropium/Albuterol Neb 3 ML IH SCH ×3 (15:50→22:31)
[2020-11-13] MEDS ORDERED: Naloxone 0.4 MG/ML INJ IVP PRN (16:38)
[2020-11-13] MEDS ORDERED: Melatonin 3 MG TABLET PO PRN (16:38)
[2020-11-13] MEDS ORDERED: Ondansetron ODT 4 MG TAB.RAPDIS SL PRN (16:38)
[2020-11-13] MEDS ORDERED: Nicotine 7 MG PATCH.TD24 TD PRN (16:44)
[2020-11-13] MEDS ORDERED: D5% in Water 1,000 ML IVC PRN (16:54)
[2020-11-13] MEDS ORDERED: Dextrose Gel 15 GM/37.5 ML TUBE PO PRN ×2 (16:54)
[2020-11-13] MEDS ORDERED: *HR* Dextrose 50 % in Water (Vial) 50 ML VIAL IVP PRN (16:54)
[2020-11-13] MEDS: *HR* Heparin 5,000 UNIT/ML VIAL SQ SCH ×2 (17:27→20:27)
[2020-11-13] MEDS: MethylPREDNISolone 40 MG/ML VIAL IVP SCH (17:27)
[2020-11-13] MEDS: cefTRIAXone 1,000 MG in Water for inj. (sterile) 10 ML IVP SCH (17:27)
[2020-11-13] MEDS: Insulin LISPRO 300 UNITS/3 ML VIAL SUBQ SCH (17:28)
[2020-11-13] MEDS ORDERED: *HR* LORazepam 2 MG/ML VIAL IVP PRN ×3 (18:39)
[2020-11-13] MEDS: Budesonide/Formoterol 160/4.5 1 PUFF INH IH SCH (19:31)
[2020-11-13] MEDS: Melatonin 3 MG TABLET PO SCH (20:27)
[2020-11-13] MEDS: FLUoxetine 20 MG CAPSULE PO SCH (20:27)
[2020-11-13] MEDS: Insulin NPH/REG 70/30 100 UNIT/ML (x5UNIT) SUBQ SCH (20:27)
[2020-11-13] MEDS: Isosorbide MONOnitrate (24 HR) 60 MG TAB.ER.24H PO SCH (20:27)
[2020-11-13] MEDS: Gabapentin 300 MG CAPSULE PO SCH (20:27)
[2020-11-13] MEDS: atenoloL 50 MG TABLET PO SCH (20:27)
[2020-11-14] MEDS: MethylPREDNISolone 40 MG/ML VIAL IVP SCH ×4 (00:27→16:43)
[2020-11-14 01:36] LABS: Basophils % 0.1 %; Hematocrit 39.7 % (37.5-50.1); Hemoglobin 13.5 g/dL (12.9-16.9); Immature Granulocytes % 0.7 % (0-4); Lymphocytes # 0.7 K/mcL (0.6-4.6); Lymphocytes % 9.7 %; Mean Corpuscular Hemoglobin 30.3 pg (28.0-33.3); Mean Platelet Volume 9.8 fL (9.4-12.4); Monocytes # 0.1 K/mcL (0.0-1.3); Monocytes % 1.1 %; Neutrophils # 6.6 K/mcL (1.6-8.9); Nucleated Red Blood Cells 0.3 /100 WBC (0); Platelet Count 327 K/mcL (140-400); Red Blood Count 4.46 M/mcL (4.19-5.50); Red Cell Distribution Width 13.4 % (11.5-14.5); Segmented Neutrophils % 88.4 %; White Blood Count 7.4 K/mcL (4.3-11.1)
[2020-11-14 01:50] LABS: BUN/Creatinine Ratio 27 (6-26); Blood Urea Nitrogen 18 mg/dL (6-20); Calcium 9.2 mg/dL (8.6-10.3); Carbon Dioxide 21 mEq/L (23-29); Chloride 105 mEq/L (98-107); Glucose 264 mg/dL (70-105); Magnesium 1.7 mg/dL (1.6-2.6); Osmolality,Calculated 289 (280-300); Phosphorous 2.8 mg/dL (2.7-4.5); Potassium 4.2 mEq/L (3.5-5.1); Sodium 134 mEq/L (136-145); eGFR For African Americans > 60 (> 60); eGFR For Non-African Americans > 60 (> 60)
[2020-11-14 02:15] LABS: Folate 13.1 ng/mL (3.0-16.0)
[2020-11-14] MEDS: Ipratropium/Albuterol Neb 3 ML IH SCH ×6 (03:21→22:36)
[2020-11-14] MEDS: *HR* Heparin 5,000 UNIT/ML VIAL SQ SCH ×3 (05:38→20:37)
[2020-11-14] MEDS: Budesonide/Formoterol 160/4.5 1 PUFF INH IH SCH ×2 (07:12→19:38)
[2020-11-14] MEDS: Tiotropium 10 INH DOSE IH SCH (07:14)
[2020-11-14] MEDS: cefTRIAXone 1,000 MG in Water for inj. (sterile) 10 ML IVP SCH (09:08)
[2020-11-14] MEDS: atenoloL 50 MG TABLET PO SCH ×2 (09:09→20:37)
[2020-11-14] MEDS: Isosorbide MONOnitrate (24 HR) 60 MG TAB.ER.24H PO SCH ×2 (09:09→20:37)
[2020-11-14] MEDS: Azithromycin 250 MG TABLET PO SCH (09:09)
[2020-11-14] MEDS: Gabapentin 300 MG CAPSULE PO SCH ×2 (09:09→20:37)
[2020-11-14] MEDS: FLUoxetine 20 MG CAPSULE PO SCH ×2 (09:09→20:37)
[2020-11-14] MEDS: Cyanocobalamin (B-12) 1,000 MCG TABLET PO SCH (09:10)
[2020-11-14] MEDS: Insulin LISPRO 300 UNITS/3 ML VIAL SUBQ SCH ×3 (09:18→16:43)
[2020-11-14] MEDS: Insulin NPH/REG 70/30 100 UNIT/ML (x5UNIT) SUBQ SCH ×2 (09:33→16:44)
[2020-11-14] MEDS: Loratadine 10 MG TABLET PO SCH (18:32)
[2020-11-14] MEDS: Melatonin 3 MG TABLET PO SCH (20:36)
[2020-11-14] MEDS: Fluticasone Propionate Nasal 50 MCG/SPRAY BOTTLE NS SCH (20:38)
[2020-11-14] MEDS ORDERED: Insulin DETEMIR 100 UNIT/ML X5UNITS SUBQ ONE (21:21)
[2020-11-15] MEDS: MethylPREDNISolone 40 MG/ML VIAL IVP SCH ×4 (00:35→16:54)
[2020-11-15] MEDS: Ipratropium/Albuterol Neb 3 ML IH SCH ×6 (03:22→23:32)
[2020-11-15] MEDS: *HR* Heparin 5,000 UNIT/ML VIAL SQ SCH ×3 (06:02→21:30)
[2020-11-15 06:43] LABS: Hematocrit 36.3 % (37.5-50.1); Hemoglobin 12.4 g/dL (12.9-16.9); Mean Corpuscular HGB Conc 34.2 g/dL (31.6-35.5); Mean Corpuscular Hemoglobin 30.7 pg (28.0-33.3); Mean Corpuscular Volume 89.9 fL (83.0-100.0); Mean Platelet Volume 10.2 fL (9.4-12.4); Platelet Count 344 K/mcL (140-400); Red Blood Count 4.04 M/mcL (4.19-5.50); Red Cell Distribution Width 13.7 % (11.5-14.5)
[2020-11-15 06:48] LABS: White Blood Count 16.4 K/mcL (4.3-11.1)
[2020-11-15 06:58] LABS: BUN/Creatinine Ratio 31 (6-26); Blood Urea Nitrogen 23 mg/dL (6-20); Carbon Dioxide 22 mEq/L (23-29); Chloride 104 mEq/L (98-107); Glucose 304 mg/dL (70-105); Osmolality,Calculated 291 (280-300); Potassium 4.5 mEq/L (3.5-5.1); Sodium 133 mEq/L (136-145); eGFR For African Americans > 60 (> 60); eGFR For Non-African Americans > 60 (> 60)
[2020-11-15] MEDS: Budesonide/Formoterol 160/4.5 1 PUFF INH IH SCH ×2 (07:48→19:56)
[2020-11-15] MEDS: Tiotropium 10 INH DOSE IH SCH (07:48)
[2020-11-15] MEDS: cefTRIAXone 1,000 MG in Water for inj. (sterile) 10 ML IVP SCH (08:09)
[2020-11-15] MEDS: Loratadine 10 MG TABLET PO SCH (08:10)
[2020-11-15] MEDS: Gabapentin 300 MG CAPSULE PO SCH ×2 (08:10→21:30)
[2020-11-15] MEDS: Isosorbide MONOnitrate (24 HR) 60 MG TAB.ER.24H PO SCH ×2 (08:10→21:30)
[2020-11-15] MEDS: Azithromycin 250 MG TABLET PO SCH (08:10)
[2020-11-15] MEDS: atenoloL 50 MG TABLET PO SCH ×2 (08:10→21:30)
[2020-11-15] MEDS: Cyanocobalamin (B-12) 1,000 MCG TABLET PO SCH (08:11)
[2020-11-15] MEDS: Insulin LISPRO 300 UNITS/3 ML VIAL SUBQ SCH ×3 (08:11→16:53)
[2020-11-15] MEDS: FLUoxetine 20 MG CAPSULE PO SCH ×2 (08:11→21:29)
[2020-11-15] MEDS: Fluticasone Propionate Nasal 50 MCG/SPRAY BOTTLE NS SCH (08:11)
[2020-11-15] MEDS: Insulin NPH/REG 70/30 100 UNIT/ML (x5UNIT) SUBQ SCH ×2 (08:19→16:54)
[2020-11-15] MEDS ORDERED: *HR* LORazepam 0.5 MG TABLET PO ONE (17:18)
[2020-11-15] MEDS: Melatonin 3 MG TABLET PO SCH (21:29)
[2020-11-16 02:15] LABS: Hemoglobin 12.2 g/dL (12.9-16.9); Mean Corpuscular HGB Conc 33.9 g/dL (31.6-35.5); Mean Corpuscular Hemoglobin 30.6 pg (28.0-33.3); Mean Corpuscular Volume 90.2 fL (83.0-100.0); Mean Platelet Volume 10.5 fL (9.4-12.4); Platelet Count 344 K/mcL (140-400); Red Blood Count 3.99 M/mcL (4.19-5.50); Red Cell Distribution Width 14.2 % (11.5-14.5); White Blood Count 16.7 K/mcL (4.3-11.1)
[2020-11-16 02:36] LABS: BUN/Creatinine Ratio 29 (6-26); Blood Urea Nitrogen 23 mg/dL (6-20); Calcium 8.7 mg/dL (8.6-10.3); Carbon Dioxide 21 mEq/L (23-29); Chloride 104 mEq/L (98-107); Glucose 324 mg/dL (70-105); Osmolality,Calculated 292 (280-300); Potassium 4.5 mEq/L (3.5-5.1); Sodium 133 mEq/L (136-145); eGFR For African Americans > 60 (> 60); eGFR For Non-African Americans > 60 (> 60)
[2020-11-16] MEDS: Ipratropium/Albuterol Neb 3 ML IH SCH ×2 (03:58→07:54)
[2020-11-16] MEDS: *HR* Heparin 5,000 UNIT/ML VIAL SQ SCH (05:26)
[2020-11-16] MEDS: Tiotropium 10 INH DOSE IH SCH (07:54)
[2020-11-16] MEDS: Budesonide/Formoterol 160/4.5 1 PUFF INH IH SCH (07:54)
[2020-11-16 08:54] VITALS: BP 145/80; PULSE 71; TEMP 98.5; O2SAT 93
[2020-11-16] MEDS ORDERED: predniSONE 20 MG TABLET PO SCH (09:00)
[2020-11-16] MEDS: Gabapentin 300 MG CAPSULE PO SCH (09:08)
[2020-11-16] MEDS: atenoloL 50 MG TABLET PO SCH (09:08)
[2020-11-16] MEDS: Azithromycin 250 MG TABLET PO SCH (09:08)
[2020-11-16] MEDS: FLUoxetine 20 MG CAPSULE PO SCH (09:08)
[2020-11-16] MEDS: Isosorbide MONOnitrate (24 HR) 60 MG TAB.ER.24H PO SCH (09:08)
[2020-11-16] MEDS: Cyanocobalamin (B-12) 1,000 MCG TABLET PO SCH (09:09)
[2020-11-16] MEDS: Loratadine 10 MG TABLET PO SCH (09:09)
[2020-11-16] MEDS: Fluticasone Propionate Nasal 50 MCG/SPRAY BOTTLE NS SCH (09:09)
[2020-11-16] MEDS: Insulin NPH/REG 70/30 100 UNIT/ML (x5UNIT) SUBQ SCH (09:09)
[2020-11-16] MEDS: Insulin LISPRO 300 UNITS/3 ML VIAL SUBQ SCH (09:10)
== END 2020-11-16 09:49 | disposition home or self-care (01) ==
LOC: 2ANU 11:07 → EMEROOARM 11:07 → SUATTDRO 15:39 → 2ANU 16:51
PROVIDERS: ADMIT Internal Medicine; ATTEND Internal Medicine

== ENCOUNTER 2021-02-25 17:26 | Observation (INO) ==
[2021-02-25 18:20] LABS: Basophils % 0.2 %; Eosinophils # 0.1 K/mcL (0.0-0.6); Eosinophils % 0.4 %; Hematocrit 41.7 % (37.5-50.1); Hemoglobin 13.9 g/dL (12.9-16.9); Immature Granulocytes % 0.6 % (0-4); Lymphocytes # 3.4 K/mcL (0.6-4.6); Mean Corpuscular HGB Conc 33.3 g/dL (31.6-35.5); Mean Corpuscular Hemoglobin 30.8 pg (28.0-33.3); Mean Corpuscular Volume 92.5 fL (83.0-100.0); Mean Platelet Volume 10.1 fL (9.4-12.4); Monocytes # 0.9 K/mcL (0.0-1.3); Monocytes % 6.4 %; Neutrophils # 9.6 K/mcL (1.6-8.9); Platelet Count 314 K/mcL (140-400); Red Blood Count 4.51 M/mcL (4.19-5.50); Segmented Neutrophils % 68.4 %
[2021-02-25 18:44] LABS: BUN/Creatinine Ratio 13 (6-26); Blood Urea Nitrogen 12 mg/dL (6-20); Calcium 9.3 mg/dL (8.6-10.3); Carbon Dioxide 23 mEq/L (23-29); Chloride 100 mEq/L (98-107); Glucose 203 mg/dL (70-105); Osmolality,Calculated 282 (280-300); Potassium 3.8 mEq/L (3.5-5.1); Sodium 133 mEq/L (136-145); Troponin I < 0.03 ng/mL (< 0.04); eGFR For African Americans > 60 (> 60); eGFR For Non-African Americans > 60 (> 60)
[2021-02-25] MEDS ORDERED: Aspirin 325 MG TABLET PO ONE (19:16)
[2021-02-25] MEDS ORDERED: Melatonin 3 MG TABLET PO PRN (20:15)
[2021-02-25] MEDS ORDERED: Ondansetron ODT 4 MG TAB.RAPDIS SL PRN (20:15)
[2021-02-25] MEDS ORDERED: Naloxone 0.4 MG/ML INJ IVP PRN (20:15)
[2021-02-25] MEDS ORDERED: Acetaminophen 325 MG TABLET PO PRN (20:15)
[2021-02-25] MEDS ORDERED: *HR* HYDROcodone/Acet 5/325 mg TABLET PO PRN (20:15)
[2021-02-25] MEDS ORDERED: Perflutren Lipid Microsphere 1.3 ML in 0.9 % Sodium Chloride 8.7 ML IVP PRN (20:20)
[2021-02-25 20:39] LABS: Influenza A PCR Negative (Negative); Influenza B PCR Negative (Negative); Resp. Syncytial Virus PCR Negative (Negative)
[2021-02-25 20:40] LABS: Bilirubin,Urine Negative (Negative); Blood,Urine Negative (Negative); Clarity,Urine Clear (Clear); Color,Urine Colorless (Yellow); Glucose,Urine (UA) 200 mg/dL (Normal); Ketones,Urine Negative (Negative); Leukocyte Esterase,Urine Negative (Negative); Nitrite,Urine Negative (Negative); PH,Urine 6.5 pH Units (5.0-8.0); Protein,Urine Negative (Neg-Trace); Specific Gravity,Urine 1.007 (1.010-1.025); Urobilinogen,Urine Normal (Normal); WBC,Urine 0-3 per hpf (0-3)
[2021-02-25] MEDS ORDERED: Dextrose Gel 15 GM/37.5 ML TUBE PO PRN ×2 (20:44)
[2021-02-25] MEDS ORDERED: D5% in Water 1,000 ML IVC PRN (20:44)
[2021-02-25] MEDS ORDERED: *HR* Dextrose 50 % in Water (Syg) 50 ML SYRINGE IVP PRN (20:44)
[2021-02-25] MEDS ORDERED: Ipratropium/Albuterol Neb 3 ML IH PRN (20:54)
[2021-02-25] MEDS ORDERED: NON-FORMULARY MEDICATION 1 EACH EACH (Albuterol Sulfate 8.5 GM Hfa.Aer.Ad) IH PRN (20:54)
[2021-02-25] MEDS ORDERED: Nitroglycerin 0.4 MG TAB.SUBL SL PRN (20:54)
[2021-02-25 20:57] LABS: SARS-CoV-2 by PCR (In House) Negative (Negative)
[2021-02-25] MEDS ORDERED: Melatonin 3 MG TABLET PO SCH (21:00)
[2021-02-25] MEDS ORDERED: Insulin LISPRO 300 UNITS/3 ML VIAL SUBQ SCH (21:00)
[2021-02-25] MEDS ORDERED: Insulin DETEMIR 100 UNIT/ML X5UNITS SUBQ SCH (21:00)
[2021-02-25] MEDS: Gabapentin 300 MG CAPSULE PO SCH (21:41)
[2021-02-25] MEDS: atenoloL 50 MG TABLET PO SCH (21:41)
[2021-02-25] MEDS: FLUoxetine 20 MG CAPSULE PO SCH (21:41)
[2021-02-25] MEDS: hydrOXYzine pamoate 25 MG CAPSULE PO SCH (21:41)
[2021-02-25] MEDS: Isosorbide MONOnitrate (24 HR) 30 MG TAB.ER.24H PO SCH (21:41)
[2021-02-25] MEDS: Nicotine 14 MG PATCH.TD24 TD SCH (21:42)
[2021-02-25 22:38] LABS: Alanine Aminotransferase 9 Units/L (7-52); Albumin 3.8 g/dL (3.5-5.7); Albumin/Globulin Ratio 1.5 (1.1-2.2); Alkaline Phosphatase 45 Units/L (34-104); Aspartate Amino Transferase 8 Units/L (13-39); BUN/Creatinine Ratio 13 (6-26); Bilirubin,Total 0.6 mg/dL (0.3-1.0); Blood Urea Nitrogen 13 mg/dL (6-20); Carbon Dioxide 25 mEq/L (23-29); Chloride 99 mEq/L (98-107); Globulin 2.5 g/dL (2.4-3.5); Glucose 343 mg/dL (70-105); Osmolality,Calculated 294 (280-300); Potassium 3.4 mEq/L (3.5-5.1); Sodium 135 mEq/L (136-145); Total Protein 6.3 g/dL (6.4-8.9); eGFR For African Americans > 60 (> 60); eGFR For Non-African Americans > 60 (> 60)
[2021-02-26 02:55] LABS: Basophils % 0.3 %; Eosinophils # 0.1 K/mcL (0.0-0.6); Eosinophils % 1.2 %; Hematocrit 39.8 % (37.5-50.1); Immature Granulocytes % 0.4 % (0-4); Lymphocytes # 4.8 K/mcL (0.6-4.6); Lymphocytes % 41.7 %; Mean Corpuscular HGB Conc 32.7 g/dL (31.6-35.5); Mean Corpuscular Hemoglobin 30.8 pg (28.0-33.3); Mean Corpuscular Volume 94.3 fL (83.0-100.0); Monocytes # 1.1 K/mcL (0.0-1.3); Monocytes % 9.1 %; Neutrophils # 5.4 K/mcL (1.6-8.9); Platelet Count 279 K/mcL (140-400); Red Blood Count 4.22 M/mcL (4.19-5.50); Red Cell Distribution Width 14.3 % (11.5-14.5); Segmented Neutrophils % 47.3 %; White Blood Count 11.5 K/mcL (4.3-11.1)
[2021-02-26] MEDS ORDERED: Regadenoson 0.4 MG/5 ML SYRINGE IVP ONE (06:31)
[2021-02-26] MEDS ORDERED: lisinopriL 5 MG TABLET PO SCH (09:00)
[2021-02-26] MEDS: Isosorbide MONOnitrate (24 HR) 30 MG TAB.ER.24H PO SCH (09:53)
[2021-02-26] MEDS: Nicotine 14 MG PATCH.TD24 TD SCH (09:53)
[2021-02-26] MEDS: atenoloL 50 MG TABLET PO SCH (09:54)
[2021-02-26] MEDS: FLUoxetine 20 MG CAPSULE PO SCH (09:54)
[2021-02-26] MEDS: hydrOXYzine pamoate 25 MG CAPSULE PO SCH (09:54)
[2021-02-26] MEDS: Gabapentin 300 MG CAPSULE PO SCH (09:55)
[2021-02-26] MEDS ORDERED: Tiotropium 10 INH DOSE IH SCH (10:00)
[2021-02-26] MEDS ORDERED: Budesonide/Formoterol 160/4.5 1 PUFF INH IH SCH (10:00)
[2021-02-26] MEDS ORDERED: *HR* Heparin 10,000 UNIT/10 ML VIAL ONE (12:57)
[2021-02-26] MEDS ORDERED: 0.9 % Sodium Chloride 2,000 ML ONE (12:57)
[2021-02-26] MEDS ORDERED: ISOVUE-370 200 ML INFUS..BTL ONE (12:57)
[2021-02-26] MEDS ORDERED: Nitroglycerin 1,000 MCG/5 ML VIAL IV ONE (12:57)
[2021-02-26] MEDS ORDERED: Heparin 1,000 UNITS/500 mL 500 ML ONE (12:57)
[2021-02-26] MEDS ORDERED: *HR* Midazolam HCl 2 MG/2 ML VIAL ONE (13:38)
[2021-02-26] MEDS ORDERED: *HR* FentaNYL (PF) 100 MCG/2 ML VIAL ONE (13:38)
[2021-02-26 14:31] VITALS: TEMP 97.6
[2021-02-26 16:00] VITALS: PULSE 63
[2021-02-26 16:56] VITALS: BP 138/80; O2SAT 99
[2021-02-26] MEDS ORDERED: Ranolazine 500 MG TAB.ER.12H PO SCH (21:00)
[2021-02-27] MEDS ORDERED: Metoprolol XL (24 HR) Succ 25 MG TAB.ER.24H PO SCH (09:00)
[2021-02-27] MEDS ORDERED: Aspirin Enteric Coated 81 MG Tablet PO SCH (09:00)
== END 2021-02-26 17:14 | disposition home or self-care (01) ==
LOC: EMEROOARM 17:26 → 3BNU 17:26 → SUATTDRO 19:51 → 3BNU 20:34
PROVIDERS: ADMIT Internal Medicine; ATTEND Registered Nurse